=== PATIENT | male | born 1950 | race Caucasian/White ===

== ENCOUNTER 2017-02-16 22:57 | Emergency (ER) | payer BC, OTHER ==
[~2017-02-16] VITALS: Ht 167.6 cm; Wt 73.4 kg
[~2017-02-16 22:57] MED LIST: CPR500 PO; LRT5 PO
[2017-02-16 23:06] VITALS: TEMP 36.9; Ht 167.6 cm; Wt 73.4 kg
[2017-02-16] MEDS ORDERED: HYDROCODONE/ACETAMOPHEN 5/325MG TAB PO STA (23:15)
--- NOTE | 2017-02-16 23:57 | EMERGENCY ROOM VISIT NOTE ---
ED Visit Note First contact with patient: 23:10 CHIEF COMPLAINT: Left wrist pain HISTORY of present illness: This 66-year-old male presents the ER with chief complaint of left wrist pain. The patient states that the pain started about 2 weeks ago and then swelling started approximately one week ago. The patient denies any known injury to the wrist. The patient is right-hand dominant. The patient does admit to having carpal tunnel surgery on his left wrist [address] Green. REVIEW OF SYSTEMS: 6 system review was performed and was negative unless stated otherwise in history of present illness. PMH: The patient is healthy; diabetic, hypertension, back surgery, knee surgery carpal tunnel surgery SOCIAL HISTORY: Patient lives with his . Patient admits to tobacco use but denies any alcohol use. PHYSICAL EXAM: Vital Signs: Were reviewed Reviewed Nurse's notes. GENERAL: 66- year-old white male appears in no acute distress. MENTAL STATUS: Alert and oriented. LEFT WRIST: No gross bony deformity noted. The patient has generalized swelling over the entire wrist joint with generalized tenderness to palpation. Full range of motion but pain elicited with flexion and extension. Positive Phalen's. The patient also has atrophy of the thenar eminence. EMERGENCY DEPARTMENT COURSE: The patient was evaluated. The patient was given [place] 5/325 mg one tablet by mouth for pain. X-ray of the left wrist was ordered and interpreted by myself without any acute findings. This will later be interpreted by the radiologist. The patient was independently evaluated by Dr. Gastelum who agrees with treatment plan. The patient is placed in a wrist lacer splint. The patient was discharged home in stable condition. DIAGNOSIS: Left wrist pain DISCHARGE INSTRUCTIONS & TREATMENT: Wear the wrist splint for 4 - 5 days until evaluated by orthopedics.. Keep the wrist elevated when possible. Take Mobic as prescribed. Ice to the swollen area frequently over the next [address] Green for follow-up appointment. Current/Historical Medications Scheduled Ciprofloxacin (Cipro *), 500 MG PO BID Hydrocodone/Acetaminophen 5MG/500MG (Vicodin 5MG/500MG), 1-2 TABLET PO Q4HR PRN Allergies Coded Allergies: [place] (Verified Allergy, Unknown, 09/16/09) Uncoded Allergies: LOCALANESTHETIC (Allergy, Severe, NOVOCAINE--FACIAL SWELLING, 09/16/09) BROOKE-LOCAL ANESTHETIC (Allergy, Unknown, RESPIRATORY DISTRESS, SWELLING, 06/02/10) Vital Signs Date Time Temp Pulse Resp B/P (MAP) Pulse Ox O2 Delivery O2 Flow Rate FiO2 02/16/17 23:06 36.9 91 18 127/69 94 Room Air Medications Administered Medications (Trade) Dose Ordered Sig/Mehul Route Start Time Stop Time Status Last Admin Dose Admin Acetaminophen/ Hydrocodone Bitart ([place] 5/325 Tab) 1 tab NOW STAT PO 02/16/17 23:15 02/16/17 23:17 DC 02/16/17 23:21 1 TAB Departure Information Patient Instructions [facility]
[2017-02-16] MEDS ORDERED: MELO7.5T5 PO (23:58)
--- NOTE | 2017-02-17 00:20 | DIAGNOSTIC IMAGING REPORT ---
LEFT WRIST 4 VIEWS CLINICAL HISTORY: Left wrist pain and swelling. FINDINGS: 4 views of left wrist are obtained. No prior studies are available for comparison at the time of dictation. The skeletal structures are osteopenic. No fracture is seen. Chronic posttraumatic change is suggested in the fifth metacarpal. There is mild degenerative narrowing at the radiocarpal articulation. Moderate arthritic change is seen at the first carpometacarpal joint. Mild overlying soft tissue edema is noted. A ring is present on the fourth finger. IMPRESSION: 1. Soft tissue swelling with no radiographic evidence of left wrist fracture. 2. Osteopenia and arthritic change as above. Electronically signed by: Vance Moser M.D. 02/17/2017 12:18 AM Dictated Date/Time: 02/17/2017 12:16 AM
[2017-02-17 00:28] VITALS: BP 134/78; PULSE 88; O2SAT 98
[2017-03-21] MEDS ORDERED: CANA1TAB3 PO (11:23)
[2017-03-21] MEDS ORDERED: TRAM-10 PO (11:23)
[2017-03-21] MEDS ORDERED: SIMV20TA2 PO (11:23)
[2017-03-21] MEDS ORDERED: LEVO88TA3 PO (11:23)
[2017-03-21] MEDS ORDERED: REPA1TAB42 PO (11:23)
[2017-03-21] MEDS ORDERED: METF-384 PO (11:23)
[2017-03-21] MEDS ORDERED: GING550C PO (11:23)
[2017-03-21] MEDS ORDERED: LISI10TA PO (11:23)
[2017-03-21] MEDS ORDERED: ASPI81TA28 PO (11:23)
[2017-03-21] MEDS ORDERED: GLYB5TAB8 PO (11:23)
[2017-03-21] MEDS ORDERED: CYAN10005 PO (11:23)
== END 2017-02-17 00:29 | disposition home or self-care (01) ==
LOC: C.EDB 22:58
DX: M25.532 Pain in left wrist (principal); E11.9 Type 2 diabetes mellitus without complications; I10 Essential (primary) hypertension; F17.200 Nicotine dependence, unspecified, uncomplicated

== ENCOUNTER → 2017-03-27 | Day surgery (SDC) | payer OTHER ==
[2017-03-21 11:03] VITALS: Ht 167.6 cm; Wt 71.8 kg
[~2017-03-27] VITALS: Ht 167.6 cm; Wt 71.8 kg
[~2017-03-27] MED LIST changes: +500ML BSS 0.3ML EPI 1:1000PF IRRIG ONE; +ACETAMINOPHEN 325 MG TAB PO PRN; +AMVISC PLUS 0.8ML SYRINGE INT OCU ONE; +ASPI81TA28 PO; +ATROPINE SULFATE 0.1 MG/ML 5ML SYR IV PRN; +BSS FLUSH ONE; +CANA1TAB3 PO; -CPR500 PO; +CYAN10005 PO; +ENDOCOAT 0.85ML SYRINGE INT OCU ONE; +EpINEphrine INJ 1MG/ML AMP 1 MG/ML AMP ONE; +GING550C PO; +GLYB5TAB8 PO; +LACTATED RINGER'S 1000ML 500 ML IV SCH; +LEVO88TA3 PO; +LIDOCAINE 4% OP SOLN DROP CHARGE OPR SCH; +LIDOCAINE HCL 1% MPF 2 ML VIAL ONE; +LISI10TA PO; -LRT5 PO; +METF-384 PO; +MIDAZOLAM HCL 1 MG/ML 2ML VIAL ONE; +MIX: 4ML BSS 1ML EPI 1:1000 PF TOP ONE; +MOXIFLOXACIN OPH SOLN PER DROP CHARGE ONE; +POVIDONE-IODINE OP SOLN 30 ML BTL ONE; +PROPARACAINE 0.5% OP SOLN PER DROP CHARGE OPR SCH; +REPA1TAB42 PO; +SIMV20TA2 PO; +TOBRAMYCIN/DEXAMETHASONE OPH OINT PER APPLN CHARGE ONE; +TRAM-10 PO
--- NOTE | 2017-03-27 06:39 | History & Physical Bridge - SC ---
H&P Re-Evaluation Bridge Note: I have examined the patient, reviewed the History & Physical and in the interval since the performance of the History & Physical I have noted the following changes of clinical significance: No changes noted
[2017-03-27] MEDS: PHENYLEPHRINE HCL 2.5% OP SOLN PER DROP CHARGE OPR SCH ×3 (06:58→07:11)
[2017-03-27] MEDS: CYCLOPENTOLATE HCL 1% OP SOLN PER DROP CHARGE OPR SCH ×3 (07:00→07:12)
[2017-03-27] MEDS: TROPICAMIDE 1% OP SOLN PER DROP CHARGE OPR SCH ×3 (07:00→07:11)
[2017-03-27] MEDS: MOXIFLOXACIN OPH SOLN PER DROP CHARGE OPR SCH ×3 (07:01→07:12)
[2017-03-27] MEDS: LIDOCAINE 4% OP SOLN DROP CHARGE ONE ×2 (07:13→07:44)
--- NOTE | 2017-03-27 07:56 | [facility] Post Operative Brief Note ---
Immediate Operative Summary Operative Date Mar 27, 2017. Pre-Operative Diagnosis Right Eye Cataract Post-Operative Diagnosis same as preop Procedure(s) Performed Right Cataract Phacoemulsification With Intraocular Lens Implant Surgeon Dr. Fish Gamb Cutter Surgeon(s) none Estimated Blood Loss 0ml Findings right cataract Specimens none, per surgeon Complication(s) None Disposition
--- NOTE | 2017-03-27 07:57 | [facility] Operative Report ---
Operative Report Date of Service Mar 27, 2017. Operative Report Phaco with monofocal IOL DATE OF OPERATION: 03/27/17 PREOPERATIVE DIAGNOSIS: Senile nuclear cataract, right eye POSTOPERATIVE DIAGNOSIS: Senile nuclear cataract, right eye PROCEDURE PERFORMED: Phacoemulsification with intraocular lens implantation, right eye SURGEON: Dr. Brijesh Fish ANESTHESIA: Topical with 1% intracameral lidocaine and monitored anesthesia care COMPLICATIONS: None DESCRIPTION OF PROCEDURE: After positively identifying the patient both verbally and by wristband in the preoperative area, the right eye was marked as the operative eye. The patient was then brought back to the operating room by the anesthesia and nursing staff where they were given a drop of Lidocaine and betadine into the operative eye. They were then sterilely prepped and draped in the standard fashion typical for ophthalmic surgery. Steri-strips were placed along the upper eyelids to keep the lashes back, and a lid speculum was placed into the operative eye. At this point, a documented time out was performed with members of the ophthalmology, nursing, and anesthesia staffs all agreeing upon the correct patient, correct location for surgery, correct procedure, and correct type and power of intraocular lens to be implanted. The microscope was then swung into position. First, a paracentesis wound was made using a sideport blade. Then, in sequence, 1% preservative-free lidocaine followed by Endocoat viscoelastic was injected into the anterior chamber. Next , the main incision was made with a keratome blade in triplanar fashion. A sharp cystotome was introduced into the eye and used to create a tear in the anterior capsule, which was directed into a continuous curvilinear capsulorrhexis using Utrata forceps. Hydrodissection was then performed with BSS on a flat-tip cannula. Next, the phacoemulsification handpiece was introduced into the eye and used to remove the nucleus in a ziblyy-hjw-hoakyoi fashion. This was done without complication and then the irrigation-aspiration handpiece was introduced into the eye and used to remove all remaining cortical and epinuclear material. Amvisc was then injected into the anterior chamber as well as into the capsular bag and using the lens injector system, an MX60 18.5 D lens, serial number [id number], and expiration date 07/2019 was injected into the capsular bag and rotated into the correct position. Next, the irrigation- aspiration handpiece was used to remove all remaining Amvisc. BSS was used to hydrate the main wound, and then BSS was injected into the paracentesis site to reach physiologic pressure and then the main wound was checked and found to be watertight. The patient was given drops of Vigamox and Tobradex ointment into the operative eye, and then the surrounding area was cleaned and dried. A clear plastic shield was placed over the eye and the patient was then sat up and taken from the operating room by the anesthesia staff having tolerated the procedure well and suffering no complications. DISPOSITION: The patient was returned to the recovery room in stable condition. I attest to the content of the Intraoperative Record and any orders documented therein. Any exceptions are noted below.
--- NOTE | 2017-03-27 07:58 | Discharge Instructions-SurgCtr ---
Discharge Instructions Date of Service Mar 27, 2017. Visit Reason for Visit: Right Cataract Discharge Discharge Diagnosis / Problem: right cataract Discharge Goals Goal(s): Decrease discomfort, Improve function Medications Stopped Medications Name(s): Metformin last dose Saturday Activity Recommendations Activity Limitations: as noted below Anesthesia . Post Anesthesia Instructions: If you have had General Anesthesia or IV Sedation: * Do not drive today. * Resume driving when surgeon permits. * Do not make important decisions or sign legal documents today. * Call surgeon for: 1. Temperature elevations greater than 101 degrees F. 2. Uncontrollable pain. 3. Excessive bleeding. 4. Persistent nausea and vomiting. 5. Medication intolerance (nausea, vomiting or rash). * For nausea and vomiting use only clear liquids such as: tea, soda, bouillon until nausea subsides, then gradually increase diet as tolerated. * If you have any concerns or questions, call your surgeon's office. If physician is unavailable and it is an emergency, call 911 or go to the nearest emergency room. . Instructions / Follow-Up Instructions / Follow-Up ACTIVITY RECOMMENDATIONS: * Light activities. * You may walk outside, read, watch television. * You may notice redness on the white part of the eye and some blurry vision - this is normal. MEDICATIONS: Resume previous medications unless instructed otherwise by your surgeon. Start all eye drops at 10 am today: * Eye drops (today): Prednisone - one drop in operative eye every 2 hours while awake Ofloxacin - one drop in operative eye every 2 hours while awake Bromfenac - one drop in operative eye daily SPECIAL CARE INSTRUCTIONS: * Tape plastic shield over eye to sleep at night. Call your doctor at with any concerns or problems. FOLLOW UP VISIT: Follow-up with Dr Fish at [place] office as scheduled. Diet Recommendations Home Diet: no limitations Procedures Procedures Performed: Right Cataract Phacoemulsification With Intraocular Lens Implant Pending Studies Studies pending at discharge: no Medical Emergencies . Who to Call and When: Medical Emergencies: If at any time you feel your situation is an emergency, please call 911 immediately. . Non-Emergent Contact Non-Emergency issues call your: Surgeon . . "Provider Documentation" section prepared by Brijesh Fish. .
[2017-03-27 08:03] VITALS: TEMP 36.5
[2017-03-27 08:21] VITALS: BP 136/80; PULSE 58; O2SAT 96
--- NOTE | 2017-03-27 08:53 | Anesthesiology Progress Note ---
Anesthesia Post Op Note Date & Time Mar 27, 2017 at 08:53 Vital Signs Pain Intensity: 0 Vital Signs Past 12 Hours Date Time Temp Pulse Resp B/P (MAP) Pulse Ox O2 Delivery O2 Flow Rate FiO2 03/27/17 08:21 58 136/80 (98) 96 Room Air 03/27/17 08:03 36.5 59 16 123/76 (92) 99 Room Air 03/27/17 07:04 36.7 66 16 135/81 (99) 96 Room Air Notes Mental Status: alert / awake / arousable, participated in evaluation Pt Amnestic to Procedure: Yes Nausea / Vomiting: adequately controlled Pain: adequately controlled Airway Patency, RR, SpO2: stable & adequate BP & HR: stable & adequate Hydration State: stable & adequate Anesthetic Complications: no major complications apparent
== END | disposition home or self-care (01) ==
LOC: X.SURG 06:38
PROVIDERS: ATTEND Ophthalmology
DX: H25.11 Age-related nuclear cataract, right eye (principal); I10 Essential (primary) hypertension; E11.9 Type 2 diabetes mellitus without complications; E78.00 Pure hypercholesterolemia, unspecified; F17.210 Nicotine dependence, cigarettes, uncomplicated; Z90.49 Acquired absence of other specified parts of digestive tract; Z79.82 Long term (current) use of aspirin; Z83.3 Family history of diabetes mellitus

== ENCOUNTER → 2017-04-10 | Day surgery (SDC) | payer OTHER ==
[2017-04-04 11:09] VITALS: Ht 167.6 cm; Wt 71.8 kg
[~2017-04-10] VITALS: Ht 167.6 cm; Wt 71.8 kg
[~2017-04-10] MED LIST changes: +EpHEDrine SULFATE INJ 50 MG/ML AMP IV PRN; +FENTANYL CITRATE INJ 50 MCG/1 ML 2 ML VIAL ONE; +LIDOCAINE 4% OP SOLN DROP CHARGE ONE; +LIDOCAINE 4% OP SOLN DROP CHARGE OPL SCH; -LIDOCAINE 4% OP SOLN DROP CHARGE OPR SCH; +PROPARACAINE 0.5% OP SOLN PER DROP CHARGE OPL SCH; -PROPARACAINE 0.5% OP SOLN PER DROP CHARGE OPR SCH
[2017-04-10] MEDS: PHENYLEPHRINE HCL 2.5% OP SOLN PER DROP CHARGE OPL SCH ×3 (07:02→07:12)
[2017-04-10] MEDS: TROPICAMIDE 1% OP SOLN PER DROP CHARGE OPL SCH ×3 (07:03→07:13)
[2017-04-10] MEDS: CYCLOPENTOLATE HCL 1% OP SOLN PER DROP CHARGE OPL SCH ×3 (07:04→07:14)
[2017-04-10] MEDS: MOXIFLOXACIN OPH SOLN PER DROP CHARGE OPL SCH ×3 (07:05→07:15)
[2017-04-10 08:02] VITALS: TEMP 36.4
--- NOTE | 2017-04-10 08:02 | [facility] Post Operative Brief Note ---
Immediate Operative Summary Operative Date Apr 10, 2017. Pre-Operative Diagnosis Left Eye Cataract Post-Operative Diagnosis Same Procedure(s) Performed Left Eye Cataract Phacoemulsification With Intraocular Lens Implant Surgeon Dr. Fish [facility] [employer] [facility] Manager Surgeon(s) None Estimated Blood Loss None Findings left cataract Specimens None Complication(s) None Disposition
--- NOTE | 2017-04-10 08:03 | [facility] Operative Report ---
Operative Report Date of Service Apr 10, 2017. Operative Report DATE OF OPERATION: 04/10/17 PREOPERATIVE DIAGNOSIS: Senile nuclear cataract, left eye POSTOPERATIVE DIAGNOSIS: Senile nuclear cataract, left eye PROCEDURE PERFORMED: Phacoemulsification with intraocular lens implantation, left eye SURGEON: Dr. Brijesh Fish ANESTHESIA: Topical with 1% intracameral lidocaine and monitored anesthesia care COMPLICATIONS: None DESCRIPTION OF PROCEDURE: After positively identifying the patient both verbally and by wristband in the preoperative area, the left eye was marked as the operative eye. The patient was then brought back to the operating room by the anesthesia and nursing staff where they were given a drop of Lidocaine and betadine into the operative eye. They were then sterilely prepped and draped in the standard fashion typical for ophthalmic surgery. Steri-strips were placed along the upper eyelids to keep the lashes back, and a lid speculum was placed into the operative eye. At this point, a documented time out was performed with members of the ophthalmology, nursing, and anesthesia staffs all agreeing upon the correct patient, correct location for surgery, correct procedure, and correct type and power of intraocular lens to be implanted. The microscope was then swung into position. First, a paracentesis wound was made using a sideport blade. Then, in sequence, 1% preservative-free lidocaine followed by Endocoat viscoelastic was injected into the anterior chamber. Next , the main incision was made with a keratome blade in triplanar fashion. A sharp cystotome was introduced into the eye and used to create a tear in the anterior capsule, which was directed into a continuous curvilinear capsulorrhexis using Utrata forceps. Hydrodissection was then performed with BSS on a flat-tip cannula. Next, the phacoemulsification handpiece was introduced into the eye and used to remove the nucleus in a [id number]-frk-hkulnrn fashion. This was done without complication and then the irrigation-aspiration handpiece was introduced into the eye and used to remove all remaining cortical and epinuclear material. Amvisc was then injected into the anterior chamber as well as into the capsular bag and using the lens injector system, an MX60 20.0 D Lens, serial number [id number], and expiration date 12/2019 was injected into the capsular bag and rotated into the correct position. Next, the irrigation- aspiration handpiece was used to remove all remaining Amvisc. BSS was used to hydrate the main wound, and then BSS was injected into the paracentesis site to reach physiologic pressure and then the main wound was checked and found to be watertight. The patient was given drops of Vigamox and Tobradex ointment into the operative eye, and then the surrounding area was cleaned and dried. A clear plastic shield was placed over the eye and the patient was then sat up and taken from the operating room by the anesthesia staff having tolerated the procedure well and suffering no complications. DISPOSITION: The patient was returned to the recovery room in stable condition. I attest to the content of the Intraoperative Record and any orders documented therein. Any exceptions are noted below.
--- NOTE | 2017-04-10 08:04 | Discharge Instructions-SurgCtr ---
Discharge Instructions Date of Service Apr 10, 2017. Visit Reason for Visit: Cataract Left Eye Discharge Discharge Diagnosis / Problem: left cataract Discharge Goals Goal(s): Decrease discomfort, Improve function Medications Stopped Medications Name(s): metformin and all other meds stopped x 2 days. Activity Recommendations Activity Limitations: as noted below Anesthesia . Post Anesthesia Instructions: If you have had General Anesthesia or IV Sedation: * Do not drive today. * Resume driving when surgeon permits. * Do not make important decisions or sign legal documents today. * Call surgeon for: 1. Temperature elevations greater than 101 degrees F. 2. Uncontrollable pain. 3. Excessive bleeding. 4. Persistent nausea and vomiting. 5. Medication intolerance (nausea, vomiting or rash). * For nausea and vomiting use only clear liquids such as: tea, soda, bouillon until nausea subsides, then gradually increase diet as tolerated. * If you have any concerns or questions, call your surgeon's office. If physician is unavailable and it is an emergency, call 911 or go to the nearest emergency room. . Instructions / Follow-Up Instructions / Follow-Up ACTIVITY RECOMMENDATIONS: * Light activities. * You may walk outside, read, watch television. * You may notice redness on the white part of the eye and some blurry vision - this is normal. MEDICATIONS: Resume previous medications unless instructed otherwise by your surgeon. Start all eye drops at 10 am today: * Eye drops (today): Prednisone - one drop in operative eye every 2 hours while awake Ofloxacin - one drop in operative eye every 2 hours while awake Bromfenac - one drop in operative eye daily SPECIAL CARE INSTRUCTIONS: * Tape plastic shield over eye to sleep at night. Call your doctor at with any concerns or problems. FOLLOW UP VISIT: Follow-up with Dr Fish at [place] office as scheduled. Diet Recommendations Home Diet: no limitations Procedures Procedures Performed: Left Eye Cataract Phacoemulsification With Intraocular Lens Implant Pending Studies Studies pending at discharge: no Medical Emergencies . Who to Call and When: Medical Emergencies: If at any time you feel your situation is an emergency, please call 911 immediately. . Non-Emergent Contact Non-Emergency issues call your: Surgeon . . "Provider Documentation" section prepared by Brijesh Fish. .
[2017-04-10 08:17] VITALS: BP 139/82; PULSE 62; O2SAT 96
--- NOTE | 2017-04-10 08:20 | Anesthesia Progress Nt - [facility] ---
Anesthesia Post Op Note Date & Time Apr 10, 2017 at 08:20 Vital Signs Pain Intensity: 0 Vital Signs Past 12 Hours Date Time Temp Pulse Resp B/P (MAP) Pulse Ox O2 Delivery O2 Flow Rate FiO2 04/10/17 08:17 62 20 139/82 (101) 96 Room Air 04/10/17 08:02 36.4 67 16 154/91 (112) 97 Room Air 04/10/17 06:52 36.4 63 18 125/77 (93) 94 Room Air Notes Mental Status: alert / awake / arousable, participated in evaluation Pt Amnestic to Procedure: Yes Nausea / Vomiting: adequately controlled Pain: adequately controlled Airway Patency, RR, SpO2: stable & adequate BP & HR: stable & adequate Hydration State: stable & adequate Anesthetic Complications: no major complications apparent
== END | disposition home or self-care (01) ==
LOC: X.SURG 06:32
PROVIDERS: ATTEND Ophthalmology
DX: H25.12 Age-related nuclear cataract, left eye (principal); E11.9 Type 2 diabetes mellitus without complications; I10 Essential (primary) hypertension; E78.00 Pure hypercholesterolemia, unspecified; E07.9 Disorder of thyroid, unspecified; Z79.82 Long term (current) use of aspirin; Z79.899 Other long term (current) drug therapy

== ENCOUNTER → 2017-09-13 | Outpatient (CLI) | payer OTHER ==
[~2017-09-13] MED LIST changes: -500ML BSS 0.3ML EPI 1:1000PF IRRIG ONE; -ACETAMINOPHEN 325 MG TAB PO PRN; -AMVISC PLUS 0.8ML SYRINGE INT OCU ONE; -ATROPINE SULFATE 0.1 MG/ML 5ML SYR IV PRN; -BSS FLUSH ONE; -ENDOCOAT 0.85ML SYRINGE INT OCU ONE; -EpHEDrine SULFATE INJ 50 MG/ML AMP IV PRN; -EpINEphrine INJ 1MG/ML AMP 1 MG/ML AMP ONE; -FENTANYL CITRATE INJ 50 MCG/1 ML 2 ML VIAL ONE; -LACTATED RINGER'S 1000ML 500 ML IV SCH; -LIDOCAINE 4% OP SOLN DROP CHARGE ONE; -LIDOCAINE 4% OP SOLN DROP CHARGE OPL SCH; -LIDOCAINE HCL 1% MPF 2 ML VIAL ONE; -MIDAZOLAM HCL 1 MG/ML 2ML VIAL ONE; -MIX: 4ML BSS 1ML EPI 1:1000 PF TOP ONE; -MOXIFLOXACIN OPH SOLN PER DROP CHARGE ONE; -POVIDONE-IODINE OP SOLN 30 ML BTL ONE; -PROPARACAINE 0.5% OP SOLN PER DROP CHARGE OPL SCH; +REPA1TAB40 PO; -REPA1TAB42 PO; -TOBRAMYCIN/DEXAMETHASONE OPH OINT PER APPLN CHARGE ONE
[2017-09-13 13:47] LABS: HEMOGLOBIN A1C 6.8 % (4.5-5.6)
[2017-09-13 13:59] LABS: ALBUMIN 4.2 gm/dl (3.4-5.0); ALT/SGPT 19 U/L (12-78); AST/SGOT 12 U/L (15-37); BLOOD UREA NITROGEN 8 mg/dl (7-18); CARBON DIOXIDE 26 mmol/L (21-32); CHOLESTEROL 115 mg/dl (0-200); CREATININE 0.82 mg/dl (0.60-1.40); GLUCOSE 124 mg/dl (70-99); SODIUM 134 mmol/L (136-145)
[2017-09-13 14:00] LABS: ALKALINE PHOSPHATASE 49 U/L (45-117); LDL CHOLESTEROL CALCULATED 55 mg/dl; TOTAL PROTEIN 7.7 gm/dl (6.4-8.2)
== END | disposition home or self-care (01) ==
LOC: C.LAB 12:34
PROVIDERS: ATTEND Internal Medicine
DX: E78.5 Hyperlipidemia, unspecified (principal); I10 Essential (primary) hypertension; E11.9 Type 2 diabetes mellitus without complications

== ENCOUNTER 2017-11-20 00:55 | Emergency (ER) | payer OTHER ==
[~2017-11-20] VITALS: Ht 167.6 cm; Wt 70.9 kg
[2017-11-20 00:59] VITALS: TEMP 36.8; Ht 167.6 cm; Wt 70.9 kg
[2017-11-20] MEDS ORDERED: MoRPHine SULFATE 10 MG/ML CARP/VIAL IM STA (01:07)
--- NOTE | 2017-11-20 01:09 | EMERGENCY ROOM VISIT NOTE ---
History Report prepared by Quinn: Dirk Meza Under the Supervision of: Dr. Joey Gastelum M.D. First contact with patient: 01:01 Chief Complaint: BACK PAIN Stated Complaint: SEVERE BACK PAIN History of Present Illness The patient is a 67 year old male who presents to the Emergency Room with complaints of constant lower back pain beginning tonight. The patient states that he first developed back pain a week ago, which has worsened and become constant tonight. He notes that he did not do any recent heaving lifting or experience any trauma. He reports that he woke up tonight with this worsened pain. The patient states that his pain worsens when he gets up and coughs. He notes that his pain radiates to his right buttock. He denies any fever, loss of bladder/bowel control, and pain that radiates down to his leg. He reports that he has a history of a previous back surgery. The patient states that he took old gabapentin and tramadol with no relief of his symptoms. Source of History: patient Onset: tonight Position: back (lower) Timing: constant Modifying Factors (Worsening): other (getting up, coughing) Associated Symptoms: No fevers Note: The patient also complains of right buttock pain. He denies any loss of bladder/ bowel control and pain that goes down to his leg. Review of Systems See HPI for pertinent positives & negatives. A total of 10 systems reviewed and were otherwise negative. Past Medical & Surgical Medical Problems: (1) Carpal tunnel syndrome Surgical Problems: (1) History of back surgery (2) History of knee surgery Family History FH: diabetes mellitus FH: lung disease FHx: cancer FHx: gallbladder disease FHx: heart disease Hypertension Kidney disease Kidney stones Social History Smoking Status: Current Every Day Smoker Marital Status: Housing Status: lives with family Occupation Status: retired Current/Historical Medications Scheduled Aspirin (Aspirin Ec), 81 MG PO QAM Atorvastatin (Lipitor), 40 MG PO DAILY Canagliflozin (Invokana), 300 MG PO QAM Cyanocobalamin (Vitamin B-12), 1,000 MCG PO DAILY Dorcas (Zingiber Officinalis) (Dorcas Root), 1,100 MG PO BID Glyburide (Micronase), 10 MG PO BIDM Levothyroxine Sodium (Levothyroxine Sodium), 88 MCG PO QAM Lisinopril (Prinivil), 10 MG PO QAM Metformin Hcl (Glucophage), 1,000 MG PO BIDM Methylprednisolone (Medrol Dosepak), 1 PKT PO UD Repaglinide (Prandin), 3-4 TAB PO AC Scheduled PRN Oxycodone Immediate Rel Tab (Roxicodone Ir), 1-2 TAB PO Q4H PRN for Severe Pain Tramadol (Ultram), 50 MG PO Q6H PRN for Pain Allergies Coded Allergies: Lidocaine (Verified Allergy, Severe, NOVOCAINE,BROOKE-FACIAL SWELLING, RESP DISTRESS, 11/20/17) Procaine (Verified Allergy, Unknown, FACIAL SWELLING, 11/20/17) Sitagliptin (Verified Allergy, Unknown, liver problems, 11/20/17) [place] (Verified Allergy, Unknown, 11/20/17) Physical Exam Vital Signs Date Time Temp Pulse Resp B/P (MAP) Pulse Ox O2 Delivery O2 Flow Rate FiO2 11/20/17 02:21 70 16 140/76 99 11/20/17 00:59 36.8 70 16 139/ 96 Room Air Physical Exam GENERAL: Patient is uncomfortable appearing and in moderate distress, hunched over secondary to pain. EYES: No scleral icterus, unremarkable pupils. ENT: Mucous membranes moist, no nasal congestion. NECK: No masses appreciated, no meningismus, trachea is midline. RESPIRATORY: No dyspnea. Clear to auscultation and equal bilaterally. No wheeze , no rhonchi. CARDIOVASCULAR: Regular rate and rhythm. No murmurs, rubs, gallops appreciated. GASTROINTESTINAL: Abdomen soft, nontender, no peritonitis. Bowel sounds positive. No masses appreciated. BACK: No midline tenderness, no CVA tenderness, vague tenderness over right iliac crest, no swelling, no erythema of low back. EXTREMITIES: Normal motion all extremities, no cyanosis, no edema. NEUROLOGIC: Alert and oriented, no acute motor or sensory deficits, no focal weakness, cranial nerves grossly intact. SKIN: No rash, no jaundice, no diaphoresis. Medical Decision & Procedures ER Provider Diagnostic Interpretation: Radiology results and stated below per my review and interpretation: 4 View Lumbar Spine X-RAY: Mild straightening of lumbar spine. Diffuse arthritic changes. Mild L4-L5 scoliosis vs. lateral compression fracture. Medications Administered Medications (Trade) Dose Ordered Sig/Mehul Route Start Time Stop Time Status Last Admin Dose Admin Morphine Sulfate (MoRPHine SULFATE INJ) 6 mg NOW STAT IM 11/20/17 01:07 11/20/17 01:09 DC 11/20/17 01:13 6 MG Oxycodone HCl (Roxicodone Immediate Rel 5MG Home Pack) 1 homepack UD ONCE PO 11/20/17 02:15 11/20/17 02:16 DC 11/20/17 02:16 1 HOMEPACK Oxycodone HCl (Roxicodone Immediate Rel Tab) 10 mg NOW STAT PO 11/20/17 02:10 11/20/17 02:12 DC 11/20/17 02:16 10 MG Prednisone (PredniSONE TAB) 60 mg NOW STAT PO 11/20/17 02:10 11/20/17 02:12 DC 11/20/17 02:15 60 MG ED Course 0103: The patient was evaluated in room A9. A complete history and physical exam was performed. 0209: I reevaluated and updated the patient. He feels a little better and would like to go home. I stressed the need for follow up with his PCP. We discussed the risks/benefits of narcotics. He is agreeable to starting a short term oxycodone, and is aware that it is very addictive. He notes that he has been on prednisone and steroids before, and is aware that he needs to monitor his sugars closely when he is on these medications. 0218: Reevaluated the patient. Discussed results and discharge instructions: He verbalized understanding and agreement. The patient is ready for discharge. Medical Decision Differential: Musculoskeletal, Disc Herniation, Fracture, Cord Compression, Discitis, Infectious, Aortic Pathology, Renal Colic, UTI/Pyelonephritis, Acute Exacerbation of Chronic Pain, Sciatica, Cauda Equina, amongst other pathologies entertained. 67 yr old male arrives for evaluation of low back pain radiating to right buttock. Spinal surg in 1982 but since with minimal issues. Today's pain started 1 week ago and worsening with stretching/twisting. Imaging without clear compression fracture through there could be slight lateral compression fracture. NO neuro deficits and aptient looks well. He wishes to get home as quickly as possible. We discussed risks/benefits of narcotics, including addiction issues, which is wishes to proceed with them. Seems reasonable as has failed tramadol/gabapentin for this. As such will also start steroids and on monitoring BSGs at home. Stable, looks well and understand instructions regarding return/follow up. [place] Drug Monitoring Program Search Results: no issues identified Medication Reconcilliation Current Medication List: was personally reviewed by me Blood Pressure Screening Patient's blood pressure: Elevated blood pressure Blood pressure disposition: Elevated BP felt to be situational Impression Primary Impression: Acute lumbar back pain Scribe Attestation The scribe's documentation has been prepared under my direction and personally reviewed by me in its entirety. I confirm that the note above accurately reflects all work, treatment, procedures, and medical decision making performed by me. Departure Information Dispostion Home / Self-Care Prescriptions Oxycodone Immediate Rel Tab (ROXICODONE IR) 5 Mg Tab 1-2 TAB PO Q4H Y for Severe Pain, #20 TAB Prov: Joey Gastelum M.D. 11/20/17 Methylprednisolone (MEDROL DOSEPAK) 4 Mg Romario 1 PKT PO UD for 6 Days, #1 PKT Prov: Joey Gastelum M.D. 11/20/17 Referrals Charli Reagan MD (PCP) Forms HOME CARE DOCUMENTATION FORM, IMPORTANT VISIT INFORMATION Patient Instructions ED Sprain Strain Lumbar, My [facility] Additional Instructions You have received a narcotic pain medication prescription. These medications may cause drowsiness and should not be used with other sedative medications. Do not drive, drink alcohol, perform dangerous activities, nor make important decisions after taking these medications. skilled nursing use or inappropriate use may lead to addiction.
[2017-11-20] MEDS ORDERED: ATOR-24 PO (01:28)
[2017-11-20] MEDS ORDERED: OXYCODONE HCL IR 5 MG TAB (IMMEDIATE RELEASE) PO STA (02:10)
[2017-11-20] MEDS ORDERED: OXYC1TAB3 PO (02:12)
[2017-11-20] MEDS ORDERED: METH4PAK PO (02:12)
[2017-11-20] MEDS ORDERED: OXYCODONE IR HOME PACK PO ONE (02:15)
[2017-11-20 02:21] VITALS: BP 140/76; PULSE 70; O2SAT 99
--- NOTE | 2017-11-20 07:43 | DIAGNOSTIC IMAGING REPORT ---
LUMBAR SPINE 5 VIEWS HISTORY: low back pain radiating right buttock COMPARISON: None. FINDINGS: There is no fracture. No subluxation. There appear to be 6 lumbar-type vertebral bodies with L6 consistent with a transitional vertebra. Prior cholecystectomy. Moderate well-formed stool seen within the colon. Minimal levoscoliosis which could be positional. Mild facet degenerative changes within the lower lumbar spine. Moderate to severe disc space narrowing at L5 L6. Mild disc space narrowing at L6 S1. There are large endplate osteophytes at the L5 L6 level. IMPRESSION: No fracture or subluxation within the lumbar spine. Degenerative changes within the lower lumbar spine as described above. Electronically signed by: Ron Rivera M.D. 11/20/2017 7:41 AM Dictated Date/Time: 11/20/2017 7:38 AM
== END 2017-11-20 02:21 | disposition home or self-care (01) ==
LOC: C.EDB 00:56 → C.EDA 02:21
DX: M54.5 Low back pain (principal); F17.210 Nicotine dependence, cigarettes, uncomplicated; Z79.82 Long term (current) use of aspirin; Z79.899 Other long term (current) drug therapy; Z88.8 Allergy status to other drugs, medicaments and biological substances; Z91.018 Allergy to other foods

== ENCOUNTER 2022-08-22 15:37 | Inpatient (IN) ==
[2022-08-22 17:07] LABS: Basophils # (auto) 0.05 K/uL (0-0.2); Basophils % (auto) 0.7 %; Eosinophils # (auto) 0.08 K/uL (0-0.50); Eosinophils % (auto) 1.1 %; Immature Granulocytes # (auto) 0.02 K/uL (0.00-0.02); Immature Granulocytes % (auto) 0.3 %; Lymphocytes # (auto) 1.31 K/uL (1.2-3.4); Lymphocytes % (auto) 18.5 %; Mean Corpuscular Hemoglobin 32.2 pg (25.0-34.0); Mean Corpuscular Hgb Conc 35.3 g/dL (32.0-36.0); Mean Corpuscular Volume 91.2 fL (80.0-100.0); Mean Platelet Volume 11.9 fL (9.4-12.4); Monocytes # (auto) 0.65 K/uL (0.24-0.82); Monocytes % (auto) 9.2 %; Neutrophils # (auto) 4.98 K/uL (1.4-6.5); Neutrophils % (auto) 70.2 %; Platelet Count 240 K/uL (130-400); RDW Coefficient of Variation 17.2 % (11.5-14.5); RDW Standard Deviation 56.6 fL (36.4-46.3); Red Blood Count 3.73 M/uL (4.63-6.08); White Blood Count 7.09 K/ul (4.8-10.8)
[2022-08-22 17:23] LABS: INR 1.1 (0.9-1.1); Partial Thromboplastin Time 27.1 Seconds (21.0-31.0); Prothrombin Time 11.9 Seconds (9.0-12.0)
[2022-08-22 17:27] LABS: Albumin Globulin Ratio 0.9 (0.9-2); Albumin Level 3.6 gm/dl (3.4-5.0); BUN Creatinine Ratio 14.3 (10-20); Bilirubin,Total 13.5 mg/dl (0.2-1.0); Calcium 9.1 mg/dl (8.5-10.1); Creatinine Clr Calc Pharmacy 91.9 ml/min; Est GFR (African American) 114.1 ml/min; Est GFR (Non-African American) 98.5 ml/min; Globulin 3.9 gm/dl (2.5-4.0); Potassium 3.8 mmol/L (3.5-5.1); Total Protein 7.5 gm/dl (6.0-8.3)
[2022-08-22] MEDS ORDERED: SODIUM CHLORIDE 0.9% 1000ML 1,000 ML IV ONE (17:55)
--- NOTE | 2022-08-22 18:00 | Emergency Department Note ---
Impression & Plan Pancreatic mass, Transaminitis, Elevated bilirubin ED Provider Note NAME: GLORIA ALVARENGA Jr AGE: 72 SEX: M : 1950 ARRIVES VIA: Walk-In INFORMANT: Patient ED PROVIDER(S): Modesto Schulz DO CHIEF COMPLAINT: Jaundice referred in HPI: Patient is a 72-year-old male who presents to the ER with past medical history of hypertension, hyperlipidemia and diabetes for jaundice. This has been going on for the past 2 weeks. Denies any belly pain. No nausea, vomiting, or diarrhea. No dysuria, urgency, or frequency. He had blood work done by his PCP which showed elevated liver functions as well as bilirubin. Had an ultrasound which showed a dilated pancreatic duct. Patient has been having diarrhea for the past 2 weeks. No other complaints. PAST MEDICAL HISTORY:See Below PAST SURGICAL HISTORY:See Below FAMILY HISTORY:See Below SOCIAL HISTORY:See Below HOME MEDICATIONS:See Below ALLERGIES:See Below VITALS:See Below PHYSICAL EXAMINATION: GENERAL: Sitting up in bed, alert, well appearing, well nourished, no distress, non-toxic EYE EXAM: Scleral icterus OROPHARYNX: no exudate, no erythema, lips, buccal mucosa, and tongue normal and mucous membranes are moist NECK: supple, no nuchal rigidity, no adenopathy, non-tender LUNGS: Clear to auscultation. Normal chest wall mechanics HEART: no murmurs, S1 normal and S2 normal ABDOMEN: abdomen soft, non-tender, normo-active bowel sounds, no masses, no rebound or guarding. UPPER EXTREMITIES: upper extremities are grossly normal. SKIN: Diffuse jaundice LOWER EXTREMITIES: No pitting edema. NEURO EXAM: Normal sensorium, cranial nerves II-XII grossly intact, normal speech, no gross weakness of arms, no gross weakness of legs. MEDICAL DECISION MAKING: Patient is a 72-year-old male who presents ER referred in by PCP. IV was established blood work was obtained. External records were reviewed as well as call sheet and it did which show a transaminitis, elevated bilirubin and dilated pancreatic duct on US which was reviewed. IV was established blood work was obtained. Labs show no significant leukocytosis or anemia. INR unremarkable. BMP with mild hyponatremia 134. Transaminitis of 200. Bilirubin elevated at 13. UA was clean. COVID-negative. Patient was updated bedside. CT abdomen pelvis confirms a pancreatic mass. Both patient and family were updated at bedside. Discussed with the hospitalist Dr. David Zhao for further evaluation. Triage Nursing notes reviewed. Limited review of prior medical records performed Vital Signs: reviewed and remarkable for no significant abnormalities Differential diagnosis: Differential diagnoses includes but is not limited to gastritis, peptic ulcer disease, GERD, gallbladder disease, pancreatitis, small bowel obstruction, irritable bowel disease, irritable bowel syndrome, appendicitis, diverticulitis, malignancy, hernia, urinary tract infection, torsion, perforation, trauma, infectious. ER treatment provided: See below Diagnostics interpreted by me include EKG and cardiac monitoring as listed below: -Cardiac Monitoring: An order was placed for continuous cardiac monitoring. The monitor shows a rate of 80 with sinus rhythm. -Laboratory studies:Interpreted by me as stated above in MDM and shown below. Imaging studies: Xrays: As interpreted by me:none CTs show: CT abdomen pelvis as described above Consultation(s): Discussed with Dr. Zhao as described above for further evaluation admission for pancreatic mass. Procedures:none Critical Care: None Past Med/Surg History Medical History (Updated 08/22/22 @ 22:48 by Modesto Schulz DO) Diabetes HLD (hyperlipidemia) HTN (hypertension) Hypothyroid Surgical History (Updated 04/13/18 @ 20:14 by Radha Stanley) Hx of colonoscopy Family History (Updated 04/13/18 @ 20:15 by Radha Stanley) Other Prostate cancer Social History Smoking Status: Current every day smoker Tobacco Type: Cigarettes Preferred Language: Cambodian Feels Safe at Home: Yes Allergies Allergies Allergy/AdvReac Type Severity Reaction Status Date / Time lidocaine Allergy Severe NOVOCAINE,BROOKE-FACIAL Verified 08/22/22 20:19 SWELLING,RESP DISTRESS procaine Allergy Unknown FACIAL Verified 08/22/22 20:19 SWELLING sitagliptin Allergy Unknown liver Verified 08/22/22 20:19 problems strawberry Allergy Unknown Unknown Verified 08/22/22 20:19 ranitidine Allergy Hives Verified 08/22/22 20:20 Home Meds Home Medications Medication Instructions Recorded Confirmed canagliflozin 300 mg tablet 300 mg PO QAM ##0 03/21/17 08/22/22 (Invokana) cyanocobalamin (vitamin B-12) 1,000 mcg PO DAILY #0 tabs 03/21/17 08/22/22 1,000 mcg tablet lisinopril 10 mg tablet 10 mg PO DAILY #0 tabs 03/21/17 08/22/22 metformin 1,000 mg tablet 1,000 mg PO BIDM #0 tabs 03/21/17 08/22/22 tramadol 50 mg tablet 50 mg PO Q6H PRN Pain #0 tabs 03/21/17 08/22/22 atorvastatin 40 mg tablet 40 mg PO DAILY 01/21/21 08/22/22 acetaminophen 650 mg 1,300 mg PO DAILY 08/22/22 08/22/22 tablet,extended release aspirin 81 mg chewable tablet 81 mg PO DAILY 08/22/22 08/22/22 insulin glargine 100 unit/mL (3 30 unit subcut HS 08/22/22 08/22/22 mL) subcutaneous pen (Lantus Solostar U-100 Insulin) levothyroxine 100 mcg tablet 100 mcg PO DAILYBB 08/22/22 08/22/22 omeprazole 20 mg capsule,delayed 20 mg PO DAILYBB 08/22/22 08/22/22 release potassium citrate 99 mg capsule 99 mg PO DAILY 08/22/22 08/22/22 prednisone 5 mg tablet 5 mg PO DAILY 08/22/22 08/22/22 Results & Data (ED) Vital Signs Vital Signs - 24 hr 08/22/22 15:54 08/22/22 18:18 08/22/22 20:00 Temperature 36.6 C Temperature Source Temporal Artery Scan Pulse Rate 85 Pulse Rate [Finger] 74 65 Respiratory Rate 18 14 18 Blood Pressure 136/77 Blood Pressure [Right Arm] 122/77 149/72 H Blood Pressure Mean 96 Blood Pressure Mean [Right Arm] 92 97 Blood Pressure Position Sitting Pulse Oximetry 98 98 97 Oxygen Delivery Method Room Air Room Air Sepsis Recent Fever Within 48 Hours No Sepsis New/Unexplained Change in Mental Status N/A Sepsis Action Taken by Nursing No Action Required 08/22/22 22:17 Temperature Temperature Source Pulse Rate 74 Pulse Rate [Finger] Respiratory Rate 18 Blood Pressure 139/74 Blood Pressure [Right Arm] Blood Pressure Mean Blood Pressure Mean [Right Arm] Blood Pressure Position Pulse Oximetry 98 Oxygen Delivery Method Room Air Sepsis Recent Fever Within 48 Hours Sepsis New/Unexplained Change in Mental Status Sepsis Action Taken by Nursing Laboratory Data 08/22/22 16:50 08/22/22 16:50 Lab Results 08/22/22 08/22/22 08/22/22 Range/Units 16:50 16:50 16:50 WBC 7.09 (4.8-10.8) K/ul RBC 3.73 L (4.63-6.08) M/uL Hgb 12.0 L (14.0-18.0) g/dl Hct 34.0 L (40.1-51.0) % MCV 91.2 (80.0-100.0) fL MCH 32.2 (25.0-34.0) pg MCHC 35.3 (32.0-36.0) g/dL RDW Std Deviation 56.6 H (36.4-46.3) fL RDW Coeff of Malick 17.2 H (11.5-14.5) % Plt Count 240 (130-400) K/uL MPV 11.9 (9.4-12.4) fL Immature Gran % (Auto) 0.3 % Neut % (Auto) 70.2 % Lymph % (Auto) 18.5 % [place] % (Auto) 9.2 % Eos % (Auto) 1.1 % Baso % (Auto) 0.7 % Neut # (Auto) 4.98 (1.4-6.5) K/uL Lymph # (Auto) 1.31 (1.2-3.4) K/uL [place] # (Auto) 0.65 (0.24-0.82) K/uL Eos # (Auto) 0.08 (0-0.50) K/uL Baso # (Auto) 0.05 (0-0.2) K/uL Immature Gran # (Auto) 0.02 (0.00-0.02) K/uL PT 11.9 (9.0-12.0) Seconds INR 1.1 (0.9-1.1) APTT 27.1 (21.0-31.0) Seconds PTT Ratio 1.0 Sodium 134 L (136-145) mmol/L Potassium 3.8 (3.5-5.1) mmol/L Chloride 102 (98-107) mmol/L Carbon Dioxide 23 (21-32) mmol/L Anion Gap 9 (3-11) BUN 9 (6-23) mg/dl Creatinine 0.63 (0.6-1.4) mg/dl Est Cr Clr Drug Dosing 91.9 ml/min Est GFR ( Amer) 114.1 ml/min Est GFR (Non-Af Amer) 98.5 ml/min BUN/Creatinine Ratio 14.3 (10-20) Glucose 86 (70-99(Fasting)) mg/dl Calcium 9.1 (8.5-10.1) mg/dl Total Bilirubin 13.5 H (0.2-1.0) mg/dl AST 202 H (13-39) U/L ALT 144 H (7-52) U/L Alkaline Phosphatase 496 H (34-104) U/L Total Protein 7.5 (6.0-8.3) gm/dl Albumin 3.6 (3.4-5.0) gm/dl Globulin 3.9 (2.5-4.0) gm/dl Albumin/Globulin Ratio 0.9 (0.9-2) Urine Color Urine Appearance (Clear) Urine pH (4.5-7.5) Ur Specific [place] (1.000-1.030) Urine Protein (Negative) Urine Glucose (UA) (Negative) Urine Ketones (Negative) Urine Blood (Negative) Urine Nitrite (Negative) Urine Bilirubin (Negative) Urine Urobilinogen (Negative) Ur Leukocyte Esterase (Negative) SARS-CoV-2, RNA, NAAT (NEGATIVE) 08/22/22 08/22/22 Range/Units 18:00 18:20 WBC (4.8-10.8) K/ul RBC (4.63-6.08) M/uL Hgb (14.0-18.0) g/dl Hct (40.1-51.0) % MCV (80.0-100.0) fL MCH (25.0-34.0) pg MCHC (32.0-36.0) g/dL RDW Std Deviation (36.4-46.3) fL RDW Coeff of Malick (11.5-14.5) % Plt Count (130-400) K/uL MPV (9.4-12.4) fL Immature Gran % (Auto) % Neut % (Auto) % Lymph % (Auto) % [place] % (Auto) % Eos % (Auto) % Baso % (Auto) % Neut # (Auto) (1.4-6.5) K/uL Lymph # (Auto) (1.2-3.4) K/uL [place] # (Auto) (0.24-0.82) K/uL Eos # (Auto) (0-0.50) K/uL Baso # (Auto) (0-0.2) K/uL Immature Gran # (Auto) (0.00-0.02) K/uL PT (9.0-12.0) Seconds INR (0.9-1.1) APTT (21.0-31.0) Seconds PTT Ratio Sodium (136-145) mmol/L Potassium (3.5-5.1) mmol/L Chloride (98-107) mmol/L Carbon Dioxide (21-32) mmol/L Anion Gap (3-11) BUN (6-23) mg/dl Creatinine (0.6-1.4) mg/dl Est Cr Clr Drug Dosing ml/min Est GFR ( Amer) ml/min Est GFR (Non-Af Amer) ml/min BUN/Creatinine Ratio (10-20) Glucose (70-99(Fasting)) mg/dl Calcium (8.5-10.1) mg/dl Total Bilirubin (0.2-1.0) mg/dl AST (13-39) U/L ALT (7-52) U/L Alkaline Phosphatase (34-104) U/L Total Protein (6.0-8.3) gm/dl Albumin (3.4-5.0) gm/dl Globulin (2.5-4.0) gm/dl Albumin/Globulin Ratio (0.9-2) Urine Color Dark Yellow Urine Appearance Clear (Clear) Urine pH 5.5 (4.5-7.5) Ur Specific [place] > 1.045 H (1.000-1.030) Urine Protein Negative (Negative) Urine Glucose (UA) 3+ H (Negative) Urine Ketones Negative (Negative) Urine Blood Negative (Negative) Urine Nitrite Negative (Negative) Urine Bilirubin 3+ H (Negative) Urine Urobilinogen Negative (Negative) Ur Leukocyte Esterase Negative (Negative) SARS-CoV-2, RNA, NAAT NEGATIVE (NEGATIVE) Administered Medications Lactated Ringer's (Lr) 1,000 mls @ 50 mls/hr IV .Q20H STA Stop: 08/23/22 17:47 Last Admin: 08/22/22 22:15 Dose: 50 mls/hr Documented By: BRIELLE Discontinued Medications Sodium Chloride (Nss 1000ml) 1,000 mls @ 999 mls/hr IV .Q1H1M ONE Stop: 08/22/22 18:55 Last Infusion: 08/22/22 20:32 Dose: 0 mls/hr Documented By: Admin: 08/22/22 18:18 Dose: 999 mls/hr Documented By: GEOVANNA Ioversol (Optiray 350 100ml) 86 ml IV ONCE ONE Stop: 08/22/22 18:10 Last Admin: 08/22/22 18:10 Dose: 86 ml Documented By: VANNESSA Imaging Data Radiologist's Impression: Abdomen/Pelvis CT 08/22/22 17:47 CT OF THE ABDOMEN AND PELVIS WITH CONTRAST CLINICAL HISTORY: Abdominal pain. Elevated liver function tests. COMPARISON STUDY: None. TECHNIQUE: Following IV administration of 86 mL of Optiray, axial images of the abdomen and pelvis were obtained from the lung bases to the proximal femurs. Images were reviewed in the axial, sagittal, and coronal planes. IV contrast was administered without complication. Automated exposure control was utilized for the study. A dose lowering technique was utilized adhering to the principles of ALARA. CT DOSE: 290.53 mGy.cm FINDINGS: Numerous irregular nodules, the majority of which are cavitary, are noted within the lower lungs. These measure up to 1.5 cm. No pneumatosis, free air or portal venous gas is present. There are multiple ill-defined hypodense hepatic lesions that measure up to 1.7 cm. Moderate to marked biliary ductal dilatation is noted status post cholecystectomy. Common bile duct measures 1.8 cm in caliber. Abrupt caliber change of the distal common bile duct within the pancreatic head is noted. There is no pancreatic ductal dilatation. However, there is an ill-defined mass within the pancreatic head and uncinate process which measures approximately 2.9 x 1.8 cm. This extends along the medial wall of the duodenum. No lymphadenopathy is present. Spleen, adrenal glands and kidneys are unremarkable. Is no hydronephrosis. There is extensive plaque of the abdominal aorta. Wall thickening of the sigmoid colon and rectum is noted. There is no evidence for a bowel obstruction. There is no ascites. No suspicious oss eous lesions are present. IMPRESSION: 1. Ill-defined pancreatic head and uncinate process mass which measures approxim ately 2.9 x 1.8 cm. This is highly suggestive of pancreatic adenocarcinoma which results in moderate to marked biliary ductal dilatation with numerous liver and pulmonary metastases, as described above. 2. Rectosigmoid wall thickening. This may be due to underdistention or represent a nonspecific proctocolitis. 3. No bowel obstruction. ACT 112: Positive. There are findings on this exam that require communication between the performing entity and the patient following Patient Test Result Information Act ([place] Act 112) guidelines. Electronically signed by: Del Crawford M.D. 08/22/2022 6:28 PM Discharge Plan Visit Data Chief Complaint: Constipation Stated Complaint: REF BY DOC,BOWEL UBSTRUCTION,LIVER INFLAMED ED Provider: Modesto Schulz Discharge Problem: Pancreatic mass, Transaminitis, Elevated bilirubin Patient Disposition: Admitted As Inpatient Discharge Instructions Interventions: ED Discharge Assessment Last Done: 08/22/22 22:17 Forms Stand Alone Forms: My [employer] Prescriptions Prescriptions: No Action cyanocobalamin (vitamin B-12) 1,000 mcg Tablet 1,000 mcg PO DAILY Qty: 0 tramadol 50 mg Tablet 50 mg PO Q6H PRN (Reason: Pain) Qty: 0 metformin 1,000 mg Tablet 1,000 mg PO BIDM Qty: 0 lisinopril 10 mg Tablet 10 mg PO DAILY Qty: 0 Invokana 300 mg Tablet 300 mg PO QAM Qty: 0 omeprazole 20 mg capsule,delayed release(DR/EC) 20 mg PO DAILYBB insulin glargine [Lantus Solostar U-100 Insulin] 100 unit/mL (3 mL) insulin pen 30 unit SUBCUT HS levothyroxine 100 mcg tablet 100 mcg PO DAILYBB prednisone 5 mg tablet 5 mg PO DAILY acetaminophen [Tylenol Extended Release] 650 mg Tablet Extended Release 1,300 mg PO DAILY aspirin [Aspirin Child] 81 mg Tablet,Chewable 81 mg PO DAILY Rx Instructions: take with food potassium citrate 99 mg Capsule 99 mg PO DAILY atorvastatin 40 mg tablet 40 mg PO DAILY Referrals Referrals: Charli Reagan MD [Primary Care Provider] -
[2022-08-22] MEDS ORDERED: OPTIRAY 350 100ml IV ONE (18:09)
--- NOTE | 2022-08-22 18:29 | CT Scan Report ---
CT OF THE ABDOMEN AND PELVIS WITH CONTRAST CLINICAL HISTORY: Abdominal pain. Elevated liver function tests. COMPARISON STUDY: None. TECHNIQUE: Following IV administration of 86 mL of Optiray, axial images of the abdomen and pelvis we re obtained from the lung bases to the proximal femurs. Images were reviewed in the axial, sagittal, and coronal planes. IV contrast was administered without complication. Automated exposure control wa s utilized for the study. A dose lowering technique was utilized adhering to the principles of ALARA . CT DOSE: 290.53 mGy.cm FINDINGS: Numerous irregular nodules, the majority of which are cavitary, are noted within the lower lungs. These measure up to 1.5 cm. No pneumatosis, free air or portal venous gas is present. There ar e multiple ill-defined hypodense hepatic lesions that measure up to 1.7 cm. Moderate to marked biliar y ductal dilatation is noted status post cholecystectomy. Common bile duct measures 1.8 cm in caliber . Abrupt caliber change of the distal common bile duct within the pancreatic head is noted. There is no pancreatic ductal dilatation. However, there is an ill-defined mass within the pancreatic head and uncinate process which measures approximately 2.9 x 1.8 cm. This extends along the medial wall of th e duodenum. No lymphadenopathy is present. Spleen, adrenal glands and kidneys are unremarkable. Is no hydronephrosis. There is extensive plaque of the abdominal aorta. Wall thickening of the sigmoid col on and rectum is noted. There is no evidence for a bowel obstruction. There is no ascites. No suspici ous osseous lesions are present. IMPRESSION: 1. Ill-defined pancreatic head and uncinate process mass which measures approximately 2.9 x 1.8 cm. T his is highly suggestive of pancreatic adenocarcinoma which results in moderate to marked biliary skylar marcus dilatation with numerous liver and pulmonary metastases, as described above. 2. Rectosigmoid wall thickening. This may be due to underdistention or represent a nonspecific procto colitis. 3. No bowel obstruction. ACT 112: Positive. There are findings on this exam that require communication between the performing entity and the patient following Patient Test Result Information Act ([place] Act 112) guidelines. Electronically signed by: Del Crawford M.D. 08/22/2022 6:28 PM
[2022-08-22 18:35] LABS: Appearance Urine Clear (Clear); Blood Urine Negative (Negative); Color Urine Dark Yellow; Glucose Urine UA 3+ (Negative); Ketones Urine Negative (Negative); Leukocyte Esterase Urine Negative (Negative); Nitrite Urine Negative (Negative); Protein Urine Negative (Negative); Specific Gravity Urine > 1.045 (1.000-1.030); Urobilinogen Urine Negative (Negative); pH Urine 5.5 (4.5-7.5)
[2022-08-22 18:42] LABS: Bilirubin Urine 3+ (Negative)
--- NOTE | 2022-08-22 21:02 | History & Physical Report ---
Date of Service August 22, 2022 Assessment & Plan (1) Painless jaundice: Plan: Secondary to possible pancreatic malignancy with mets on imaging hypertension, stable hyperlipidemia, on statin Rx hx PVD PMR on chronic steroid Rx DM2 insulin requiring, reasonable control as of recent hemoglobin A1c of 7.3 last August 2022 hypothyroidism, euthyroid as of recent outpatient TSH Acute on chronic anemia, hemoglobin drop from baseline ongoing tobacco abuse [facility] GI consult Re: Painless jaundice, pancreatic tumor N.p.o. after midnight until patient seen by service anticipation of diagnostic procedure Oncology consult eventually Basal bolus insulin adjusted for n.p.o. status, ISS BG goal 1 10-1 40 Anemia work-up, transfuse PRBC if hemoglobin less than 8 and or for symptomatic anemia Nicotine patch as needed DVT prophylaxis per Lovenox subcu Full code Patient requesting updates from providers. Ms. Lisa Boone, contact #[phone]. Text document was generated using Index voice recognition software. It may contain grammatical or spelling errors. Kindly contact undersigned for clarification of any documentation item in question. History of Present Illness Chief Complaint: Jaundice Primary Care Provider: Charli Reagan MD History obtained from patient, family, and records. Medical history significant for hypertension, hyperlipidemia, PVD, PMR on chronic steroid Rx, GERD, DM2 insulin requiring, hypothyroidism, chronic anemia (baseline hemoglobin of 13), ongoing tobacco abuse. 1 month history of generalized pruritus. Two weeks ago, patient noted weight loss and poor appetite. No abdominal pain, no fever, no chills. No bleeding. Outpatient blood work ordered by PCP during outpatient visit last month drawn 4 days ago. Abnormal labs noted. Hemoglobin noted to be 12, ALT 190, AST 309, alk phos 586, total bilirubin 9 Outpatient liver ultrasound requested by PCP few days ago. 1. The pancreatic duct is prominent measuring up to 3.7 mm. Further nonemergent evaluation is recommended to exclude pancreatic neoplasm. 2. 1.4 x 1.2 cm slightly hypoechoic lesion in the anterior aspect of the left lobe of the liver. Additional 1.6 x 2 cm lesion in the right lobe of the liver. Additional lesions are present but not measured. Further nonemergent evaluation with CT with liver protocol or MRI is recommended to exclude neoplastic process. Patient skin color noted to be yellow by this week. Patient directed to ER by PCP following conversation with . 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 Allergies Allergy/AdvReac Type Severity Reaction Status Date / Time lidocaine Allergy Severe NOVOCAINE,BROOKE-FACIAL Verified 08/22/22 20:19 SWELLING,RESP DISTRESS procaine Allergy Unknown FACIAL Verified 08/22/22 20:19 SWELLING sitagliptin Allergy Unknown liver Verified 08/22/22 20:19 problems strawberry Allergy Unknown Unknown Verified 08/22/22 20:19 ranitidine Allergy Hives Verified 08/22/22 20:20 Home Medications Medication Instructions Recorded Confirmed Type canagliflozin 300 mg tablet 300 mg PO QAM ##0 03/21/17 08/22/22 History (Invokana) cyanocobalamin (vitamin B-12) 1,000 mcg PO DAILY #0 tabs 03/21/17 08/22/22 History 1,000 mcg tablet lisinopril 10 mg tablet 10 mg PO DAILY #0 tabs 03/21/17 08/22/22 History metformin 1,000 mg tablet 1,000 mg PO BIDM #0 tabs 03/21/17 08/22/22 History tramadol 50 mg tablet 50 mg PO Q6H PRN Pain #0 tabs 03/21/17 08/22/22 History atorvastatin 40 mg tablet 40 mg PO DAILY 01/21/21 08/22/22 History acetaminophen 650 mg 1,300 mg PO DAILY 08/22/22 08/22/22 History tablet,extended release aspirin 81 mg chewable tablet 81 mg PO DAILY 08/22/22 08/22/22 History insulin glargine 100 unit/mL (3 30 unit subcut HS 08/22/22 08/22/22 History mL) subcutaneous pen (Lantus Solostar U-100 Insulin) levothyroxine 100 mcg tablet 100 mcg PO DAILYBB 08/22/22 08/22/22 History omeprazole 20 mg capsule,delayed 20 mg PO DAILYBB 08/22/22 08/22/22 History release potassium citrate 99 mg capsule 99 mg PO DAILY 08/22/22 08/22/22 History prednisone 5 mg tablet 5 mg PO DAILY 08/22/22 08/22/22 History Past Med/Surg History Medical History (Updated 08/23/22 @ 05:39 by Baljinder Solano MD) Diabetes HLD (hyperlipidemia) HTN (hypertension) Hypothyroid Surgical History (Updated 04/13/18 @ 20:14 by Radha Stanley) Hx of colonoscopy Family History (Updated 04/13/18 @ 20:15 by Radha Stanley) Other Prostate cancer Social History Smoking Status: Current every day smoker Tobacco Type: Cigarettes Do You Dip or Chew Tobacco: No; Tobacco Cessation Education Requested by Patient: No Hx Alcohol Use: No Hx Substance Use: No Preferred Language: Comoran Communication Ability: Effective Softwood Faller Required: No Beliefs That Will Affect Care: None Current Living Situation: Spouse Other Information That Helps Us Care for You: No Feels Safe at Home: Yes Safety Concerns: Feels Safe At This Time Assistive Devices: None Review of Systems Review of Systems: As per HPI, all other systems reviewed and negative Physical Exam Physical Exam: GENERAL: Comfortable, pleasant, no respiratory distress SKIN: Jaundice, warm HEENT: Pale palpebral conjunctivae, no ptosis, icteric sclerae, dry buccal mucosa NECK : Supple, no tenderness CHEST : Decreased breath sounds, no tenderness HEART : RRR, no obvious murmurs ABDOMEN: Some distention, nontender EXTREMITIES : No LE swelling/tenderness, no other conspicuous deformities noted NEUROLOGIC : Coherent, no facial asymmetry, no other gross focality Results & Data Results & Data ([facility]) Vital Signs (Past 12 Hours) Vital Signs Temp Pulse Pulse Resp BP BP Pulse Ox 08/22/22 20:00 65 18 149/72 H 97 08/22/22 18:18 74 14 122/77 98 08/22/22 15:54 36.6 C 85 18 136/77 98 O2 Del Method 08/22/22 20:00 08/22/22 18:18 Room Air 08/22/22 15:54 Room Air Laboratory Results 08/22/22 08/22/22 08/22/22 16:50 16:50 16:50 WBC 7.09 RBC 3.73 L Hgb 12.0 L Hct 34.0 L MCV 91.2 MCH 32.2 MCHC 35.3 RDW Std Deviation 56.6 H RDW Coeff of Malick 17.2 H Plt Count 240 MPV 11.9 Immature Gran % (Auto) 0.3 Neut % (Auto) 70.2 Lymph % (Auto) 18.5 Barber % (Auto) 9.2 Eos % (Auto) 1.1 Baso % (Auto) 0.7 Neut # (Auto) 4.98 Lymph # (Auto) 1.31 Barber # (Auto) 0.65 Eos # (Auto) 0.08 Baso # (Auto) 0.05 Immature Gran # (Auto) 0.02 PT 11.9 INR 1.1 APTT 27.1 PTT Ratio 1.0 Sodium 134 L Potassium 3.8 Chloride 102 Carbon Dioxide 23 Anion Gap 9 BUN 9 Creatinine 0.63 Est Cr Clr Drug Dosing 91.9 Est GFR ( Amer) 114.1 Est GFR (Non-Af Amer) 98.5 BUN/Creatinine Ratio 14.3 Glucose 86 Calcium 9.1 Total Bilirubin 13.5 H AST 202 H ALT 144 H Alkaline Phosphatase 496 H Total Protein 7.5 Albumin 3.6 Globulin 3.9 Albumin/Globulin Ratio 0.9 Urine Color Urine Appearance Urine pH Ur Specific [place] Urine Protein Urine Glucose (UA) Urine Ketones Urine Blood Urine Nitrite Urine Bilirubin Urine Urobilinogen Ur Leukocyte Esterase SARS-CoV-2, RNA, NAAT 08/22/22 08/22/22 18:00 18:20 WBC RBC Hgb Hct MCV MCH MCHC RDW Std Deviation RDW Coeff of Malick Plt Count MPV Immature Gran % (Auto) Neut % (Auto) Lymph % (Auto) Barber % (Auto) Eos % (Auto) Baso % (Auto) Neut # (Auto) Lymph # (Auto) Barber # (Auto) Eos # (Auto) Baso # (Auto) Immature Gran # (Auto) PT INR APTT PTT Ratio Sodium Potassium Chloride Carbon Dioxide Anion Gap BUN Creatinine Est Cr Clr Drug Dosing Est GFR ( Amer) Est GFR (Non-Af Amer) BUN/Creatinine Ratio Glucose Calcium Total Bilirubin AST ALT Alkaline Phosphatase Total Protein Albumin Globulin Albumin/Globulin Ratio Urine Color Dark Yellow Urine Appearance Clear Urine pH 5.5 Ur Specific [place] > 1.045 H Urine Protein Negative Urine Glucose (UA) 3+ H Urine Ketones Negative Urine Blood Negative Urine Nitrite Negative Urine Bilirubin 3+ H Urine Urobilinogen Negative Ur Leukocyte Esterase Negative SARS-CoV-2, RNA, NAAT NEGATIVE Diagnostic Findings CT abdomen pelvis: 1. Ill-defined pancreatic head and uncinate process mass which measures approximately 2.9 x 1.8 cm. This is highly suggestive of pancreatic adenocarcinoma which results in moderate to marked biliary ductal dilatation with numerous liver and pulmonary metastases, as described above. 2. Rectosigmoid wall thickening. This may be due to underdistention or represent a nonspecific proctocolitis. 3. No bowel obstruction. EKG as per my interpretation : Rate 70, NSR, normal axis, no ischemia
[2022-08-22] MEDS ORDERED: ACETAMINOPHEN 325 MG TAB PO PRN (21:43)
[2022-08-22] MEDS ORDERED: LACTATED RINGER'S 1,000 ML IV STA (21:48)
[2022-08-22] MEDS ORDERED: GLUCAGON FOR INJ 1 MG VIAL SQ PRN (23:09)
[2022-08-22] MEDS ORDERED: GLUCOSE 10 TAB/TUBE PO PRN (23:09)
[2022-08-22] MEDS ORDERED: CARBOHYDRATES FOR HYPOGLYCEMIA PO PRN (23:09)
[2022-08-22] MEDS ORDERED: traMADol HCL 50 MG TABLET PO PRN (23:09)
[2022-08-22] MEDS ORDERED: GLUCOSE 40% GEL 15 GM TUBE PO PRN (23:09)
[2022-08-22] MEDS ORDERED: DEXTROSE 50% 50 ML SYRINGE IV PRN (23:09)
[2022-08-22] MEDS ORDERED: PROMETHAZINE HCL 6.25 MG in SODIUM CHLORIDE 0.9% 50 ML IV PRN (23:09)
[2022-08-22] MEDS: LANTUS PER UNIT CHARGE SQ SCH (23:41)
[2022-08-22] MEDS: INSULIN ASPART PER UNIT SC SCH (23:42)
[2022-08-23] MEDS: PANTOprazole 40 MG TAB PO SCH (05:55)
[2022-08-23] MEDS: LEVOTHYROXINE SODIUM 100 MCG TABLET PO SCH (05:55)
[2022-08-23] MEDS: INSULIN ASPART PER UNIT SC SCH ×4 (06:08→20:58)
[2022-08-23 07:38] LABS: Basophils # (auto) 0.06 K/uL (0-0.2); Eosinophils # (auto) 0.17 K/uL (0-0.50); Eosinophils % (auto) 2.8 %; Hematocrit (blood only) 30.2 % (40.1-51.0); Hemoglobin 10.6 g/dl (14.0-18.0); Immature Granulocytes # (auto) 0.01 K/uL (0.00-0.02); Immature Granulocytes % (auto) 0.2 %; Lymphocytes # (auto) 1.01 K/uL (1.2-3.4); Lymphocytes % (auto) 16.9 %; Mean Corpuscular Hgb Conc 35.1 g/dL (32.0-36.0); Mean Corpuscular Volume 91.2 fL (80.0-100.0); Mean Platelet Volume 11.7 fL (9.4-12.4); Monocytes # (auto) 0.66 K/uL (0.24-0.82); Neutrophils # (auto) 4.07 K/uL (1.4-6.5); Neutrophils % (auto) 68.1 %; Platelet Count 215 K/uL (130-400); RDW Coefficient of Variation 17.2 % (11.5-14.5); RDW Standard Deviation 56.6 fL (36.4-46.3); Red Blood Count 3.31 M/uL (4.63-6.08); Reticulocyte % 2.5 % (0.5-2.0); Reticulocytes # 0.08 10^6/uL (0.02-0.10); White Blood Count 5.98 K/ul (4.8-10.8)
[2022-08-23 08:18] LABS: Ferritin 235.2 ng/ml (8-388)
[2022-08-23 08:24] LABS: Vitamin B12 > 1500 pg/ml (180-914)
--- NOTE | 2022-08-23 08:59 | Electrocardiogram Report ---
Test Reason : Blood Pressure : / mmHG Vent. Rate : 071 BPM Atrial Rate : 071 BPM P-R Int : 154 ms QRS Dur : 090 ms QT Int : 394 ms P-R-T Axes : 031 033 056 degrees QTc Int : 428 ms Poor data quality, interpretation may be adversely affected Normal sinus rhythm Normal ECG When compared with ECG of 21-JAN-2021 19:26, No significant change was found Confirmed by Gal Dumas ([id number]) on 08/23/2022 8:59:20 AM Referred By: Charli Reagan Confirmed By:Gal Dumas
[2022-08-23] MEDS ORDERED: predniSONE 5 MG TAB PO SCH (09:00)
[2022-08-23] MEDS ORDERED: ASPIRIN 81 MG ECTAB PO SCH (09:00)
[2022-08-23] MEDS ORDERED: ENOXAPARIN INJ 30 MG/0.3 ML SYR SQ SCH (09:00)
[2022-08-23] MEDS: lisinopril 10 MG TAB PO SCH (09:09)
[2022-08-23 09:28] LABS: Albumin Level 3.2 gm/dl (3.4-5.0); BUN Creatinine Ratio 12.5 (10-20); Bilirubin,Total 13.5 mg/dl (0.2-1.0); Calcium 8.6 mg/dl (8.5-10.1); Creatinine Clr Calc Pharmacy 89.5 ml/min; Est GFR (African American) 113.4 ml/min; Est GFR (Non-African American) 97.8 ml/min; Globulin 3.3 gm/dl (2.5-4.0); Potassium 3.5 mmol/L (3.5-5.1); Total Protein 6.5 gm/dl (6.0-8.3)
[2022-08-23] MEDS ORDERED: HYDROCORTISONE ACETATE 25 MG SUPP PR PRN (10:13)
[2022-08-23] MEDS ORDERED: Nursing to Pharmacy Communication SCH (10:45)
--- NOTE | 2022-08-23 12:28 | Gastrointestinal Consultation ---
Date of Consultation August 23, 2022 Assessment & Plan (1) Painless jaundice: (2) Pancreatic mass: (3) Diarrhea: Patient is a 72 years old male who presented with painless jaundice, appetite and weight loss, elevated LFTs. CT abdomen pelvis with signs of obstructing pancreatic head mass measuring 2.9 x 1.8 cm with suspicious metastatic processes within the liver and lung areas. CT also showed signs of possible proctocolitis with patient's having symptoms of diarrhea. - CL diet today - NPO after midnight - EUS/ERCP with Dr. Hussein in [place] on 08/24/2021 - CEA elevated, f/u CA 19-9 - Check stool cx and Cdiff - Hydrocortisone 25mg RI BID prn hemorrhoidal pain/bleeding - Consider colonoscopy to eval for proctitis if stool studies negative and pt still having diarrhea and rectal pain symptoms Supervising Physician Co-Signing Physician Notes I have personally seen and examined the patient with CALEB Berumen. Her note reflects my exam and findings. I agree with her impression and plan. EUS tomorrow. Discussed with patient that CT is highly suggestive of pancreatic cancer. Narendra Moeller M.D. History of Present Illness Reason for Consultation: Abnormal LFTs, pancreas mass Requesting Physician: Dr. Poly Moore Attending Physician: Dr. Narendra Moeller History of Present Illness Patient is a 72 years old male with past medical histories of diabetes, hyperlipidemia, hypertension, hypothyroidism who was referred to ED by PCP after noticed him to be jaundiced in the past week. Pt denies any other associated symptoms including fevers, chills, rash, chest pain, shortness of breath, abdominal pain, nausea or vomiting. He does note that his appetite is somewhat poor and lost about 10 pounds in the last 2 weeks. He is having loose stools, having lots of burning and irritation on his hemorrhoids due to the frequency of bowel movements. Denies any rectal bleeding. Upon evaluation, he was noted to have no leukocytosis, he is anemic with H&H of 10/30, Chemistry and kidney functions relatively unremarkable, LFTs however were increased: Total bilirubin 13, AST 197, ALT 129, alkaline phosphatase 441 (compared to LFTs last week - Tbili 9, AST 300, ALT 180, alk phos 500) . CEA 51.8, CA 19-[address] abd/pelvis w contrast showed ill-defined pancreatic head and uncinate process mass which measures approximately 2.9 x 1.8 cm, highly suggestive of pancreatic adenocarcinoma w moderate to marked biliary ductal dilatation along with numerous liver and pulmonary metastases. There is also rectosigmoid wall thickening which may be due to underdistention or represent a nonspecific proctocolitis. Pt is a tobacco smoker. Denies ETOH, illicit drugs Last EGD 2014: esophagitis, gastritis Last colonoscopy 2018: poor prep, adenomatous colon polyp Allergies Allergy/AdvReac Type Severity Reaction Status Date / Time lidocaine Allergy Severe NOVOCAINE,BROOKE-FACIAL Verified 08/22/22 20:19 SWELLING,RESP DISTRESS procaine Allergy Unknown FACIAL Verified 08/22/22 20:19 SWELLING sitagliptin Allergy Unknown liver Verified 08/22/22 20:19 problems strawberry Allergy Unknown Unknown Verified 08/22/22 20:19 ranitidine Allergy Hives Verified 08/22/22 20:20 Home Medications Medication Instructions Recorded Confirmed Type canagliflozin 300 mg tablet 300 mg PO QAM ##0 03/21/17 08/22/22 History (Invokana) cyanocobalamin (vitamin B-12) 1,000 mcg PO DAILY #0 tabs 03/21/17 08/22/22 History 1,000 mcg tablet lisinopril 10 mg tablet 10 mg PO DAILY #0 tabs 03/21/17 08/22/22 History metformin 1,000 mg tablet 1,000 mg PO BIDM #0 tabs 03/21/17 08/22/22 History tramadol 50 mg tablet 50 mg PO Q6H PRN Pain #0 tabs 03/21/17 08/22/22 History atorvastatin 40 mg tablet 40 mg PO DAILY 01/21/21 08/22/22 History acetaminophen 650 mg 1,300 mg PO DAILY 08/22/22 08/22/22 History tablet,extended release aspirin 81 mg chewable tablet 81 mg PO DAILY 08/22/22 08/22/22 History insulin glargine 100 unit/mL (3 30 unit subcut HS 08/22/22 08/22/22 History mL) subcutaneous pen (Lantus Solostar U-100 Insulin) levothyroxine 100 mcg tablet 100 mcg PO DAILYBB 08/22/22 08/22/22 History omeprazole 20 mg capsule,delayed 20 mg PO DAILYBB 08/22/22 08/22/22 History release potassium citrate 99 mg capsule 99 mg PO DAILY 08/22/22 08/22/22 History prednisone 5 mg tablet 5 mg PO DAILY 08/22/22 08/22/22 History Patient History Medical History Diabetes HLD (hyperlipidemia) HTN (hypertension) Hypothyroid Surgical History Hx of colonoscopy Family History Other Prostate cancer Social History Smoking Status: Current every day smoker Tobacco Type: Cigarettes Do You Dip or Chew Tobacco: No; Tobacco Cessation Education Requested by Patient: No Hx Alcohol Use: No Hx Substance Use: No Preferred Language: Wallisian Communication Ability: Effective Pediatrician Active Practice Required: No Beliefs That Will Affect Care: None Current Living Situation: Spouse Other Information That Helps Us Care for You: No Feels Safe at Home: Yes Safety Concerns: Feels Safe At This Time Assistive Devices: None Review of Systems Review of Systems: All systems reviewed & are unremarkable except as noted in HPI & below Physical Exam Constitutional: Thin, cooperative Eyes: icteric sclera ENMT: external ear and nose normal, oropharynx normal Respiratory: normal respiratory effort, lungs clear to auscultation Cardiovascular: RRR, no murmur, no edema Gastrointestinal (Abdomen): normal bowel sounds, soft, nontender, no hepatosplenomegaly Skin: + jaundice Neurologic: Motor/Sensory: no asterixis Psychiatric: A+Ox3, euthymic affect Lymphatic: no lymphedema Results & Data ([facility]) Vital Signs (Past 12 Hours) Vital Signs Temp Pulse Resp BP Pulse Ox O2 Del Method 08/23/22 07:40 36.8 C 61 16 137/73 96 Room Air
[2022-08-23 14:01] LABS: Adenovirus F 40/41 PCR Not Detected (NotDetected); Astrovirus PCR Not Detected (NotDetected); Campylobacter PCR Not Detected (NotDetected); Cryptosporidium PCR Not Detected (NotDetected); Cyclospora cayetanensis PCR Not Detected (NotDetected); Entamoeba histolytica PCR Not Detected (NotDetected); Enteroaggregative E.coli(EAEC) Not Detected (NotDetected); Enteropathogenic E.coli (EPEC) Not Detected (NotDetected); Enterotoxigenic E.coli (ETEC) Not Detected (NotDetected); Giardia lamblia PCR Not Detected (NotDetected); Norovirus GI/GII PCR Not Detected (NotDetected); Plesiomonas shigelloides PCR Not Detected (NotDetected); Rotavirus A PCR Not Detected (NotDetected); Salmonella PCR Not Detected (NotDetected); Sapovirus PCR Not Detected (NotDetected); Shiga-like Toxin E.coli (STEC) Not Detected (NotDetected); Shigella/Enteroinvasive E.coli Not Detected (NotDetected); Vibrio cholerae PCR Not Detected (NotDetected); Vibrio species PCR Not Detected (NotDetected); Yersinia enterocolitica PCR Not Detected (NotDetected)
[2022-08-23] MEDS: LANTUS PER UNIT CHARGE SQ SCH (21:04)
--- NOTE | 2022-08-23 21:22 | Hospitalist Progress Note ---
Date of Service August 23, 2022 Assessment & Plan (1) Painless jaundice: Plan: CT abd/pelvis showed pancreatic head and uncinate process mass which measures approximately 2.9 x 1.8 cm. This is highly suggestive of pancreatic adenocarcinoma which results in moderate to marked biliary ductal dilatation with numerous liver and pulmonary metastases. Elevated LFT with AST 202 and ALT 144 AST 197, ALT 129 and alkaline phosphate 441 today Elevated CEA and CA19-9 pending Gastro on board Case discussed with GI that plan for EUS/ERCP tomorrow Currently on clear liquid diet Will make NPO after midnight . Rectal pain CT abd/pelvis showed rectosigmoid wall thickening. This may be due to underdistention or represent a nonspecific proctocolitis. Starting on Hydrocortisone [place] 25mg BID Diarrhea Stool cx are negative Consider colonoscopy to eval for proctitis Lung nodule Low-dose CT chest on 05/2022 show bilateral cavitary lesion CT imaging discussed with Dr. Zhao pulmonology recommend to repeat the CAT scan since it has been more than 3 months Due to recent contrast, will get the CT chest done in next few days Diabetes Recent hemoglobin A1c of 7.3 on August 2022 Continue Lantus and insulin sliding scale Continue monitor BS Code status full code Disposition We will discharge once medically stable (2) Pancreatic mass: (3) Transaminitis: Admission and Anticipated Discharge Date Admission Date: August 22, 2022 Subjective Patient was seen and evaluated for follow-up of abnormal liver enzymes Lying in bed with no acute distress with at bedside Pt said that his PCP sent him to ER because of abnormal liver enzymes He denies any abdominal pain, nausea and vomiting Review of Systems Review of Systems: All systems reviewed & are unremarkable except as noted in Subjective Physical Exam Physical Exam: General- No acute distress Head- atraumatic Eyes- PERRL, EOMI, ENT- oropharynx clear Neck- supple, no JVD Lungs- clear to auscultation Heart- regular rhythm; no murmur Abdomen- normal bowel sounds, soft, nontender Extremities- no calf tenderness Neuro- alert, oriented x 3; PERRL, EOMI; no facial palsy; no dysarthria Skin- warm & dry, +jaundice Results & Data Results & Data ([facility]) Vital Signs (Past 12 Hours) Vital Signs Temp Pulse Resp BP Pulse Ox O2 Del Method 08/23/22 16:33 36.5 C 64 18 134/82 99 Room Air
[2022-08-24] MEDS ORDERED: Nursing to Pharmacy Communication SCH (01:00)
[2022-08-24] MEDS ORDERED: CIPROFLOXACIN / D5W 400 MG/200 ML BAG IV SCH (06:00)
[2022-08-24] MEDS ORDERED: INSULIN ASPART PER UNIT SC SCH (06:00)
[2022-08-24] MEDS: PANTOprazole 40 MG TAB PO SCH (06:11)
[2022-08-24] MEDS: LEVOTHYROXINE SODIUM 100 MCG TABLET PO SCH (06:11)
[2022-08-24] MEDS ORDERED: SUGAMMADEX SODIUM 200 MG/2 ML VIAL IV ONE (06:55)
[2022-08-24] MEDS ORDERED: ONDANSETRON INJ 2 MG/ML 2 ML VIAL ONE (07:02)
[2022-08-24] MEDS ORDERED: PROPOFOL IV EMULSION 10 MG/ML 20 ML VIAL IV ONE (07:02)
[2022-08-24] MEDS ORDERED: ROCURONIUM BROMIDE 10 MG/ML 5 ML VIAL IV ONE (07:02)
[2022-08-24] MEDS ORDERED: fentaNYL citrate 100 MCG/2 ML VIAL ONE (07:02)
[2022-08-24] MEDS ORDERED: DEXAMETHASONE SOD INJ 4 MG/ML VIAL ONE (07:02)
--- NOTE | 2022-08-24 07:03 | Anesthesiology Consultation ---
Date of Service August 24, 2022 Assessment & Plan Chart Review Chart Review: Acceptable Risk for Surgery and Patient NOT seen in Pre Admission Testing Consults Requested none ASA ASA4 Proposed Anesthesia Anesthesia Type: General Risk / Benefits Reviewed With: PT / POA / Parent / Guardian, Accepts Plan and Informed Consent Obtained History Surgery Operation Date: 08/24/22 07:15 Proposed Procedures p Endoscopic Retrograde Cholangiopancreatogram - Mukesh Hussein DO s Endoscopic Ultrasonography Upper - Mukesh Hussein DO Height/Weight Height: 5 ft 6 in Weight: 60.64 kg Allergies Allergy/AdvReac Type Severity Reaction Status Date / Time lidocaine Allergy Severe NOVOCAINE,BROOKE-FACIAL Verified 08/22/22 20:19 SWELLING,RESP DISTRESS procaine Allergy Unknown FACIAL Verified 08/22/22 20:19 SWELLING sitagliptin Allergy Unknown liver Verified 08/22/22 20:19 problems strawberry Allergy Unknown Unknown Verified 08/22/22 20:19 ranitidine Allergy Hives Verified 08/22/22 20:20 Medications Home Medications Medication Instructions Recorded Confirmed Last Taken canagliflozin 300 mg tablet 300 mg PO QAM ##0 03/21/17 08/22/22 01/21/21 (Invokana) cyanocobalamin (vitamin B-12) 1,000 mcg PO DAILY #0 tabs 03/21/17 08/22/22 01/21/21 1,000 mcg tablet lisinopril 10 mg tablet 10 mg PO DAILY #0 tabs 03/21/17 08/22/22 01/21/21 metformin 1,000 mg tablet 1,000 mg PO BIDM #0 tabs 03/21/17 08/22/22 01/21/21 tramadol 50 mg tablet 50 mg PO Q6H PRN Pain #0 tabs 03/21/17 08/22/22 01/21/21 atorvastatin 40 mg tablet 40 mg PO DAILY 01/21/21 08/22/22 01/21/21 acetaminophen 650 mg 1,300 mg PO DAILY 08/22/22 08/22/22 Unknown tablet,extended release aspirin 81 mg chewable tablet 81 mg PO DAILY 08/22/22 08/22/22 Unknown insulin glargine 100 unit/mL (3 30 unit subcut HS 08/22/22 08/22/22 Unknown mL) subcutaneous pen (Lantus Solostar U-100 Insulin) levothyroxine 100 mcg tablet 100 mcg PO DAILYBB 08/22/22 08/22/22 Unknown omeprazole 20 mg capsule,delayed 20 mg PO DAILYBB 08/22/22 08/22/22 Unknown release potassium citrate 99 mg capsule 99 mg PO DAILY 08/22/22 08/22/22 Unknown prednisone 5 mg tablet 5 mg PO DAILY 08/22/22 08/22/22 Unknown Active Medications Generic Name Dose Route Start Last Admin Trade Name Zoey PRN Reason Stop Dose Admin Aspirin 81 mg 08/23/22 09:00 08/23/22 09:09 Aspirin 81 Mg Ectab PO 09/22/22 08:59 Not Given DAILY CHARAN Dextrose 25 - 50 ml 08/22/22 23:09 08/24/22 05:52 Dextrose 50% 50 Ml Syringe IV 09/21/22 23:08 25 ml UD PRN Administration Hypoglycemia Protocol Protocol Enoxaparin Sodium 30 mg 08/23/22 09:00 08/23/22 09:38 Enoxaparin Inj 30 Mg/0.3 Ml Syr SQ 09/22/22 08:59 30 mg QAM CHARAN Administration Hydrocortisone 25 mg 08/23/22 10:13 08/23/22 12:24 Hydrocortisone Acetate 25 Mg Supp VA 09/22/22 20:59 25 mg BID PRN Administration hemorrhoids Insulin Aspart 0 units 08/24/22 06:00 08/24/22 05:59 Insulin Aspart Per Unit SC 09/23/22 05:59 Not Given Q6 [facility] Levothyroxine Sodium 100 mcg 08/23/22 06:30 08/24/22 06:11 Levothyroxine Sodium 100 Mcg Tablet PO 09/22/22 06:29 Not Given DAILYBB [facility] Lisinopril 10 mg 08/23/22 09:00 08/23/22 09:09 Lisinopril 10 Mg Tab PO 09/22/22 08:59 Not Given DAILY [facility]AN Pantoprazole Sodium 40 mg 08/23/22 06:30 08/24/22 06:11 Pantoprazole 40 Mg Tab PO 09/22/22 06:29 Not Given DAILYBB [facility] Prednisone 5 mg 08/23/22 09:00 08/23/22 09:09 Prednisone 5 Mg Tab PO 09/22/22 08:59 Not Given DAILY [facility] NPO Date Last Intake of Fluids: 08/23/22 Time Last Intake of Fluids: 23:30 Date Last Intake of Solids: 08/22/22 Time Last Intake of Solids: 22:00 Past Medical History Medical History Diabetes HLD (hyperlipidemia) HTN (hypertension) Hypothyroid Exercise / Class Metabolic Activity III < 4 Walking/Shop/Light housework Past Family History Family History Other Prostate cancer Past Surgical History Surgical History Hx of colonoscopy Past Anesthesia History No Hx of Anesthesia Complications and No Family Hx of Anesthesia Complications History of PONV No Hx of PONV and No Hx of Motion Sickness Social History Smoking Status: Current every day smoker tobacco type: cigarettes Do You Dip or Chew Tobacco: No Hx Alcohol Use: No Hx Substance Use: No Physical Exam Vital Signs Last Vital Signs Temp 36.8 C 08/24/22 06:03 Pulse 56 L 08/24/22 06:03 Resp 16 08/24/22 06:03 BP 133/75 08/24/22 06:03 Pulse Ox 96 08/24/22 06:03 O2 Del Method 08/24/22 06:03 Constitutional + cachectic; no acute distress ENMT Mouth: + dentition abnormality and + edentulous Thyromental Distance: > or= 3.5 Finger Breadths Mallampati Class: II Neck normal visual inspection, trachea midline and + facial hair; neck extension not limited Respiratory normal respiratory effort Auscultation: + diminished lung sounds Cardiovascular Rate/Rhythm: regular rate and regular rhythm Heart Sounds: no murmur Vessels: no carotid bruit Musculoskeletal Spine: normal cervical ROM Extremities: full ROM of extremities Skin jaundiced Neurologic moves all extremities Motor/Sensory: no sensory deficit Psychiatric Orientation: alert and oriented x 3 Testing Laboratory Results 08/23/22 07:02 08/23/22 07:02 PT 11.9 Seconds (9.0-12.0) 08/22/22 16:50 INR 1.1 (0.9-1.1) 08/22/22 16:50 APTT 27.1 Seconds (21.0-31.0) 08/22/22 16:50 Urine Color Dark Yellow 08/22/22 18:20 Urine Appearance Clear (Clear) 08/22/22 18:20 Urine pH 5.5 (4.5-7.5) 08/22/22 18:20 Ur Specific [place] > 1.045 (1.000-1.030) H 08/22/22 18:20 Urine Protein Negative (Negative) 08/22/22 18:20 Urine Glucose (UA) 3+ (Negative) H 08/22/22 18:20 Urine Ketones Negative (Negative) 08/22/22 18:20 Urine Nitrite Negative (Negative) 08/22/22 18:20 Ur Leukocyte Esterase Negative (Negative) 08/22/22 18:20 08/24/22 08/24/22 08/24/22 06:07 05:46 05:44 POC Glucose 124 H 67 L* 65 L* 08/23/22 20:47 POC Glucose 86 Electrocardiogram Date: 08/22/22 Findings: + NSR @ (@ 71)
--- NOTE | 2022-08-24 07:10 | History & Physical Bridge Note ---
Date of Service August 24, 2022 History & Physical Bridge Note I have examined the patient, reviewed the History & Physical and in the interval since the performance of the History & Physical I have noted the following changes of clinical significance: no changes noted. The patient had presented with evidence of biliary obstruction and a pancreatic mass on imaging. We are planning to do endoscopic ultrasound for EUS guided FNA, staging and followed by a ERCP for biliary decompression. The risks of the procedures include bleeding, infection, perforation, pain, failed biliary cannulation and insufficient cellularity.
[2022-08-24] MEDS ORDERED: INDOMETHACIN 50 MG SUPP PR ONE ×2 (07:13→10:12)
[2022-08-24] MEDS ORDERED: CIPROFLOXACIN 400MG / 200ML D5W IV ONE (07:14)
[2022-08-24] MEDS ORDERED: LABETALOL HCL IV 5 MG/ML 20ML IV PRN (07:51)
[2022-08-24] MEDS ORDERED: fentaNYL citrate 100 MCG/2 ML VIAL IV PRN (07:51)
[2022-08-24] MEDS ORDERED: ATROPINE SULFATE 0.1 MG/ML 10ML SYR IV PRN (07:51)
[2022-08-24] MEDS ORDERED: FLUMAZENIL 0.1 MG/1 ML 10 ML VIAL IV PRN (07:51)
[2022-08-24] MEDS ORDERED: PROMETHAZINE HCL 12.5 MG in SODIUM CHLORIDE 0.9% 50 ML IV PRN (07:51)
[2022-08-24] MEDS ORDERED: NALOXONE HCL 0.4 MG/1 ML VIAL/CARP IV PRN (07:51)
[2022-08-24] MEDS ORDERED: ePHEDrine sulfate 50 MG/ML AMP IV PRN (07:51)
[2022-08-24] MEDS ORDERED: ONDANSETRON INJ 2 MG/ML 2 ML VIAL IV PRN (07:51)
--- NOTE | 2022-08-24 08:28 | Post Operative Brief Note ---
Immediate Post Op Note v1 Date of Surgery August 24, 2022 Pre & Post Diagnosis Operation Date: 08/24/22 07:15 Pre-Op Diagnosis: pancreatic tumor, abn lfts Post-Op Diagnosis: Pancreatic mass. I identified the patient and participated in the time-out.: Yes Procedure Operation Date: 08/24/22 07:15 Actual Procedures p Endoscopic Ultrasonography Upper - Mukesh Hussein DO p Endoscopic Retrograde Cholangiopancreato - Mukesh Hussein DO Surgeon Mukesh Hussein DO Pacs Specialist none Estimated Blood Loss 0 Findings Consistent with Post-Op Diagnosis
--- NOTE | 2022-08-24 08:31 | Communication Note ---
Date of Service: August 24, 2022 Patient underwent EUS and attempted ERCP today. The patient was found to have a 24 mm mass in the pancreatic head obstructing the bile duct and pancreatic duct. Fine-needle aspiration was obtained from the primary, unfortunately I was unable to cannulate the biliary tree due to obstruction from the mass. Recommendations Clear liquid diet today Referral to a tertiary center for repeat ERCP
--- NOTE | 2022-08-24 08:48 | Anesthesiology Progress Note ---
Date of Service August 24, 2022 Anesthesia Post Procedure Vital Signs Vital Signs: Temp Pulse Pulse Resp BP BP Pulse Ox 08/24/22 08:35 76 20 144/94 H 96 08/24/22 08:25 75 16 149/82 H 99 08/24/22 08:16 36.2 C L 77 15 138/77 100 08/24/22 06:03 36.8 C 56 L 16 133/75 96 08/23/22 22:23 37.1 C 60 17 118/67 97 08/23/22 19:55 08/23/22 16:33 36.5 C 64 18 134/82 99 O2 Del Method O2 Flow Rate 08/24/22 08:35 Room Air 08/24/22 08:25 Oxymask 4 08/24/22 08:16 Oxymask 14 08/24/22 06:03 Room Air 08/23/22 22:23 Room Air 08/23/22 19:55 Room Air 08/23/22 16:33 Room Air Transfer of Care Handoff Completed per policy Notes Mental Status: alert / awake / arousable Patient Amnestic to Procedure: Yes Nausea / Vomiting: adequately controlled Pain: adequately controlled Airway Patency, RR, SpO2: stable & adequate BP & HR: stable & adequate Hydration State: stable & adequate Anesthetic Complications: no major complications apparent
[2022-08-24] MEDS: lisinopril 10 MG TAB PO SCH (09:09)
--- NOTE | 2022-08-24 09:14 | History & Physical Report ---
Date of Service August 24, 2022 Assessment & Plan Admission and Anticipated Discharge Date Admission Date: August 22, 2022 History of Present Illness Chief Complaint: Abdominal pain Primary Care Provider: Charli Reagan MD The patient is referred for upper endoscopy, endoscopic ultrasound and possible ERCP to evaluate a history of abdominal discomfort and mild elevation of her liver associated enzymes. She reports having a cholecystectomy in 2013 and has developed intermittent right-sided discomfort over the past few weeks. Allergies Allergy/AdvReac Type Severity Reaction Status Date / Time lidocaine Allergy Severe NOVOCAINE,BROOKE-FACIAL Verified 08/22/22 20:19 SWELLING,RESP DISTRESS procaine Allergy Unknown FACIAL Verified 08/22/22 20:19 SWELLING sitagliptin Allergy Unknown liver Verified 08/22/22 20:19 problems strawberry Allergy Unknown Unknown Verified 08/22/22 20:19 ranitidine Allergy Hives Verified 08/22/22 20:20 Home Medications Medication Instructions Recorded Confirmed Type canagliflozin 300 mg tablet 300 mg PO QAM ##0 03/21/17 08/22/22 History (Invokana) cyanocobalamin (vitamin B-12) 1,000 mcg PO DAILY #0 tabs 03/21/17 08/22/22 History 1,000 mcg tablet lisinopril 10 mg tablet 10 mg PO DAILY #0 tabs 03/21/17 08/22/22 History metformin 1,000 mg tablet 1,000 mg PO BIDM #0 tabs 03/21/17 08/22/22 History tramadol 50 mg tablet 50 mg PO Q6H PRN Pain #0 tabs 03/21/17 08/22/22 History atorvastatin 40 mg tablet 40 mg PO DAILY 01/21/21 08/22/22 History acetaminophen 650 mg 1,300 mg PO DAILY 08/22/22 08/22/22 History tablet,extended release aspirin 81 mg chewable tablet 81 mg PO DAILY 08/22/22 08/22/22 History insulin glargine 100 unit/mL (3 30 unit subcut HS 08/22/22 08/22/22 History mL) subcutaneous pen (Lantus Solostar U-100 Insulin) levothyroxine 100 mcg tablet 100 mcg PO DAILYBB 08/22/22 08/22/22 History omeprazole 20 mg capsule,delayed 20 mg PO DAILYBB 08/22/22 08/22/22 History release potassium citrate 99 mg capsule 99 mg PO DAILY 08/22/22 08/22/22 History prednisone 5 mg tablet 5 mg PO DAILY 08/22/22 08/22/22 History Past Med/Surg History Medical History Diabetes HLD (hyperlipidemia) HTN (hypertension) Hypothyroid Surgical History Hx of colonoscopy Family History Other Prostate cancer Social History Smoking Status: Current every day smoker Tobacco Type: Cigarettes Do You Dip or Chew Tobacco: No; Tobacco Cessation Education Requested by Patient: No Hx Alcohol Use: No Hx Substance Use: No Preferred Language: Ethiopian Communication Ability: Effective Sky Diver Required: No Beliefs That Will Affect Care: None Current Living Situation: Spouse Other Information That Helps Us Care for You: No Feels Safe at Home: Yes Safety Concerns: Feels Safe At This Time Assistive Devices: None Physical Exam Eyes: PERRL, conjunctivae normal, anicteric sclerae ENMT: external ear and nose normal, oropharynx normal Respiratory: normal respiratory effort, lungs clear to auscultation Cardiovascular: RRR, no murmur, no edema Gastrointestinal (Abdomen): Inspection/Auscultation: abdomen normal to inspection; abdomen not distended Results & Data ([facility]) Vital Signs (Past 12 Hours) Vital Signs Temp Pulse Pulse Resp BP BP Pulse Ox 08/24/22 08:45 36.3 C L 69 16 137/75 97 08/24/22 08:35 76 20 144/94 H 96 08/24/22 08:25 75 16 149/82 H 99 08/24/22 08:16 36.2 C L 77 15 138/77 100 08/24/22 06:03 36.8 C 56 L 16 133/75 96 08/23/22 22:23 37.1 C 60 17 118/67 97 O2 Del Method O2 Flow Rate 08/24/22 08:45 Room Air 08/24/22 08:35 Room Air 08/24/22 08:25 Oxymask 4 08/24/22 08:16 Oxymask 14 08/24/22 06:03 Room Air 08/23/22 22:23 Room Air Laboratory Results Albumin 3.8 - 5.0 g/dL 4.7 AST 10 - 35 U/L 30 Alkaline Phosphatase 35 - 130 U/L 114 ALT 10 - 35 U/L 45High Bilirubin, Total <=1.2 mg/dL 0.8 Bilirubin, Direct 0.0 - 0.3 mg/dL <0.2 Protein 6.0 - 8.3 g/dL 7.5 Code Status & VTE Plan VTE Prophylaxis Plan VTE Prophylaxis will be ordered: Yes
[2022-08-24 09:27] LABS: Hemoglobin 12.7 g/dl (14.0-18.0); Mean Corpuscular Hgb Conc 33.4 g/dL (32.0-36.0); Mean Corpuscular Volume 95.7 fL (80.0-100.0); Mean Platelet Volume 11.3 fL (9.4-12.4); Platelet Count 260 K/uL (130-400); RDW Coefficient of Variation 17.2 % (11.5-14.5); Red Blood Count 3.97 M/uL (4.63-6.08)
--- NOTE | 2022-08-24 09:31 | GI REPORT ---
Patient Name: Srinivas Boone Procedure Date: 08/24/2022 7:44 AM Date of : 1950 Admit Type: Inpatient Age: 72 Gender: Male Attending MD: Mukesh Hussein DO, Procedure: ERCP Providers: Mukesh Hussein DO Referring MD: DENISE Basilio Indications: Jaundice, Elevated liver enzymes Medicines: General Anesthesia Complications: No immediate complications. Estimated blood loss: Minimal. Estimated Blood Loss: Estimated blood loss was minimal. Procedure: Pre-Anesthesia Assessment: - Prior to the procedure, a History and Physical was performed, and patient medications, allergies and sensitivities were reviewed. The patient's tolerance of previous anesthesia was reviewed. - The risks and benefits of the procedure and the sedation options and risks were discussed with the patient. All questions were answered and informed consent was obtained. - Patient identification and proposed procedure were verified prior to the procedure by the physician, the nurse and the glass mechanic. The procedure was verified in the procedure room. - Pre-procedure physical examination revealed no contraindications to sedation. - ASA Grade Assessment: IV - A patient with severe systemic disease that is a constant threat to life. - After reviewing the risks and benefits, the patient was deemed in satisfactory condition to undergo the procedure. - The anesthesia plan was to use general anesthesia. - Immediately prior to administration of medications, the patient was re-assessed for adequacy to receive sedatives. - The heart rate, respiratory rate, oxygen saturations, blood pressure, adequacy of pulmonary ventilation, and response to care were monitored throughout the procedure. - The physical status of the patient was re-assessed after the procedure. After obtaining informed consent, the scope was passed under direct vision. Throughout the procedure, the patient's blood pressure, pulse, and oxygen saturations were monitored continuously. The Duodenoscope was introduced through the mouth, and advanced to the duodenum without successful cannulation. The ERCP was accomplished without difficulty. The patient tolerated the procedure well. Findings: The cutting machine tender decorative film was normal. The esophagus was successfully intubated under direct vision without detailed examination of the pharynx, larynx, and associated structures, and upper GI tract. The upper GI tract was grossly normal. The major papilla was small. The bile duct could not be cannulated with the short-nosed traction sphincterotome and guidewire (several combinations tried to include a 0.35 in acrobat 2, 0.025 angled visiglide). A biliary pre-cut sphincterotomy was made with a needle knife using a freehand technique using ERBE electrocautery. There was no post-sphincterotomy bleeding. The bile duct could not be cannulated despite the pre-cut. The endoscope was withdrawn from the patient. Impression: - The major papilla appeared to be small. - A biliary sphincterotomy was performed. Recommendation: - Return patient to [facility] for ongoing care. - Refer to [facility] [place] for repeat attempt at ERCP. Mukesh Hussein D.O. Mukesh Hussein, DO 08/24/2022 9:30:51 AM This report has been signed electronically. Note Initiated On: 08/24/2022 7:44 AM Number of Addenda: 0 I attest to the content of the Intraoperative Record and orders documented therein, exceptions below {[id number]}
--- NOTE | 2022-08-24 10:18 | Discharge Summary ---
Date of Service August 24, 2022 Admission HPI Per Admitting Provider History obtained from patient, family, and records. Medical history significant for hypertension, hyperlipidemia, PVD, PMR on chronic steroid Rx, GERD, DM2 insulin requiring, hypothyroidism, chronic anemia (baseline hemoglobin of 13), ongoing tobacco abuse. 1 month history of generalized pruritus. Two weeks ago, patient noted weight loss and poor appetite. No abdominal pain, no fever, no chills. No bleeding. Outpatient blood work ordered by PCP during outpatient visit last month drawn 4 days ago. Abnormal labs noted. Hemoglobin noted to be 12, ALT 190, AST 309, alk phos 586, total bilirubin 9 Outpatient liver ultrasound requested by PCP few days ago. 1. The pancreatic duct is prominent measuring up to 3.7 mm. Further nonemergent evaluation is recommended to exclude pancreatic neoplasm. 2. 1.4 x 1.2 cm slightly hypoechoic lesion in the anterior aspect of the left lobe of the liver. Additional 1.6 x 2 cm lesion in the right lobe of the liver. Additional lesions are present but not measured. Further nonemergent evaluation with CT with liver protocol or MRI is recommended to exclude neoplastic process. Patient skin color noted to be yellow by this week. Patient directed to ER by PCP following conversation with . Admission Exam Per Admitting Provider GENERAL: Comfortable, pleasant, no respiratory distress SKIN: Jaundice, warm HEENT: Pale palpebral conjunctivae, no ptosis, icteric sclerae, dry buccal mucosa NECK : Supple, no tenderness CHEST : Decreased breath sounds, no tenderness HEART : RRR, no obvious murmurs ABDOMEN: Some distention, nontender EXTREMITIES : No LE swelling/tenderness, no other conspicuous deformities noted NEUROLOGIC : Coherent, no facial asymmetry, no other gross focality Principal Diagnosis Pancreatic mass Rectal pain Diarrhea Lung nodule Diabetes Discharge Exam General- No acute distress Head- atraumatic Eyes- PERRL, EOMI, ENT- oropharynx clear Neck- supple, no JVD Lungs- clear to auscultation Heart- regular rhythm; no murmur Abdomen- normal bowel sounds, soft, nontender Extremities- no calf tenderness Neuro- alert, oriented x 3; PERRL, EOMI; no facial palsy; no dysarthria Skin- warm & dry, +jaundice Discharge Data Allergies Allergy/AdvReac Type Severity Reaction Status Date / Time lidocaine Allergy Severe NOVOCAINE,BROOKE-FACIAL Verified 08/22/22 20:19 SWELLING,RESP DISTRESS procaine Allergy Unknown FACIAL Verified 08/22/22 20:19 SWELLING sitagliptin Allergy Unknown liver Verified 08/22/22 20:19 problems strawberry Allergy Unknown Unknown Verified 08/22/22 20:19 ranitidine Allergy Hives Verified 08/22/22 20:20 Consultations 08/22/22 18:45 ED Decision to Admit Stat 08/22/22 23:09 Consult Gastroenterology Routine Procedures Performed Operation Date: 08/24/22 07:15 Actual Procedures p Endoscopic Ultrasonography Upper - Mukesh Hussein DO p Endoscopic Retrograde Cholangiopancreato - Mukesh Hussein DO Ordered Studies 08/22/22 17:47 CT Abd and Pelvis [CT abd pelvis IV con only] Stat 08/24/22 FL fluoroscopy <1hr Routine 08/24/22 06:42 US upper EUS PACS images Routine Laboratory Results WBC 6.70 K/ul (4.8-10.8) 08/24/22 09:15 RBC 3.97 M/uL (4.63-6.08) L 08/24/22 09:15 Hgb 12.7 g/dl (14.0-18.0) L 08/24/22 09:15 Hct 38.0 % (40.1-51.0) L 08/24/22 09:15 MCV 95.7 fL (80.0-100.0) 08/24/22 09:15 MCH 32.0 pg (25.0-34.0) 08/24/22 09:15 MCHC 33.4 g/dL (32.0-36.0) 08/24/22 09:15 RDW Std Deviation 60.0 fL (36.4-46.3) H 08/24/22 09:15 RDW Coeff of Malick 17.2 % (11.5-14.5) H 08/24/22 09:15 Plt Count 260 K/uL (130-400) 08/24/22 09:15 MPV 11.3 fL (9.4-12.4) 08/24/22 09:15 Immature Gran % (Auto) 0.2 % 08/23/22 07:02 Neut % (Auto) 68.1 % 08/23/22 07:02 Lymph % (Auto) 16.9 % 08/23/22 07:02 [place] % (Auto) 11.0 % 08/23/22 07:02 Eos % (Auto) 2.8 % 08/23/22 07:02 Baso % (Auto) 1.0 % 08/23/22 07:02 Reticulocyte % (Auto) 2.5 % (0.5-2.0) H 08/23/22 07:02 Neut # (Auto) 4.07 K/uL (1.4-6.5) 08/23/22 07:02 Lymph # (Auto) 1.01 K/uL (1.2-3.4) L 08/23/22 07:02 [place] # (Auto) 0.66 K/uL (0.24-0.82) 08/23/22 07:02 Eos # (Auto) 0.17 K/uL (0-0.50) 08/23/22 07:02 Baso # (Auto) 0.06 K/uL (0-0.2) 08/23/22 07:02 Reticulocyte # 0.08 10^6/uL (0.02-0.10) 08/23/22 07:02 Immature Gran # (Auto) 0.01 K/uL (0.00-0.02) 08/23/22 07:02 PT 11.9 Seconds (9.0-12.0) 08/22/22 16:50 INR 1.1 (0.9-1.1) 08/22/22 16:50 APTT 27.1 Seconds (21.0-31.0) 08/22/22 16:50 PTT Ratio 1.0 08/22/22 16:50 Sodium 136 mmol/L (136-145) 08/24/22 09:15 Potassium 3.5 mmol/L (3.5-5.1) 08/24/22 09:15 Chloride 101 mmol/L (98-107) 08/24/22 09:15 Carbon Dioxide 28 mmol/L (21-32) 08/24/22 09:15 Anion Gap 7 (3-11) 08/24/22 09:15 BUN 6 mg/dl (6-23) 08/24/22 09:15 Creatinine 0.63 mg/dl (0.6-1.4) 08/24/22 09:15 Est Cr Clr Drug Dosing 90.9 ml/min 08/24/22 09:15 Est GFR ( Amer) 114.1 ml/min 08/24/22 09:15 Est GFR (Non-Af Amer) 98.5 ml/min 08/24/22 09:15 BUN/Creatinine Ratio 9.5 (10-20) L 08/24/22 09:15 Glucose 101 mg/dl (70-99(Fasting)) H 08/24/22 09:15 POC Glucose 114 mg/dl (70-99) H 08/24/22 08:22 Calcium 8.9 mg/dl (8.5-10.1) 08/24/22 09:15 Iron 97 mcg/dl (35-175) 08/23/22 07:02 Transferrin 214 mg/dl (200-360) 08/23/22 07:02 Ferritin 235.2 ng/ml (8-388) 08/23/22 07:02 Total Bilirubin 13.5 mg/dl (0.2-1.0) H 08/24/22 09:15 AST 181 U/L (13-39) H 08/24/22 09:15 ALT 129 U/L (7-52) H 08/24/22 09:15 Alkaline Phosphatase 483 U/L (34-104) H 08/24/22 09:15 Total Protein 7.4 gm/dl (6.0-8.3) 08/24/22 09:15 Albumin 3.7 gm/dl (3.4-5.0) 08/24/22 09:15 Globulin 3.7 gm/dl (2.5-4.0) 08/24/22 09:15 Albumin/Globulin Ratio 1.0 (0.9-2) 08/24/22 09:15 Carcinoembryonic Ag 51.8 ng/ml (0-2.5) H 08/23/22 07:02 CA 19-9 Antigen 93516 U/mL (<34) H 08/23/22 07:02 Vitamin B12 > 1500 pg/ml (180-914) H 08/23/22 07:02 Folate 14.46 ng/ml (>5.38) 08/23/22 07:02 Urine Color Dark Yellow 08/22/22 18:20 Urine Appearance Clear (Clear) 08/22/22 18:20 Urine pH 5.5 (4.5-7.5) 08/22/22 18:20 Ur Specific [place] > 1.045 (1.000-1.030) H 08/22/22 18:20 Urine Protein Negative (Negative) 08/22/22 18:20 Urine Glucose (UA) 3+ (Negative) H 08/22/22 18:20 Urine Ketones Negative (Negative) 08/22/22 18:20 Urine Blood Negative (Negative) 08/22/22 18:20 Urine Nitrite Negative (Negative) 08/22/22 18:20 Urine Bilirubin 3+ (Negative) H 08/22/22 18:20 Urine Urobilinogen Negative (Negative) 08/22/22 18:20 Ur Leukocyte Esterase Negative (Negative) 08/22/22 18:20 Stl C. cayetanensis PCR Not Detected (NotDetected) 08/23/22 Unknown Stool Rotavirus A PCR Not Detected (NotDetected) 08/23/22 Unknown Stl Adenov F 40/41 PCR Not Detected (NotDetected) 08/23/22 Unknown Stool Astrovirus (PCR) Not Detected (NotDetected) 08/23/22 Unknown Stool Campylobacter PCR Not Detected (NotDetected) 08/23/22 Unknown Stl C. diff Tox B Gene TNP 08/23/22 Unknown Stool Cryptosporidium PCR Not Detected (NotDetected) 08/23/22 Unknown Stl E.coli Shiga Tox PCR Not Detected (NotDetected) 08/23/22 Unknown Stl Enterotoxigenic E PCR Not Detected (NotDetected) 08/23/22 Unknown Stool EPEC (PCR) Not Detected (NotDetected) 08/23/22 Unknown Stool EAEC (PCR) Not Detected (NotDetected) 08/23/22 Unknown Stl E. histolytica PCR Not Detected (NotDetected) 08/23/22 Unknown Stool Giardia Lamblia PCR Not Detected (NotDetected) 08/23/22 Unknown Stool Salmonella PCR Not Detected (NotDetected) 08/23/22 Unknown Stool Sapovirus (PCR) Not Detected (NotDetected) 08/23/22 Unknown Stl P. shigelloides PCR Not Detected (NotDetected) 08/23/22 Unknown Stl Shigella/EIEC PCR Not Detected (NotDetected) 08/23/[address]enterocolitica PCR Not Detected (NotDetected) 08/23/22 Unknown Stool Vibrio (PCR) Not Detected (NotDetected) 08/23/22 Unknown Stl Vibrio cholerae PCR Not Detected (NotDetected) 08/23/22 Unknown Stl Norovirus GI/GII PCR Not Detected (NotDetected) 08/23/22 Unknown SARS-CoV-2, RNA, NAAT NEGATIVE (NEGATIVE) 08/22/22 18:00 Impressions Abdomen/Pelvis CT 08/22/22 17:47 CT OF THE ABDOMEN AND PELVIS WITH CONTRAST CLINICAL HISTORY: Abdominal pain. Elevated liver function tests. COMPARISON STUDY: None. TECHNIQUE: Following IV administration of 86 mL of Optiray, axial images of the abdomen and pelvis were obtained from the lung bases to the proximal femurs. Images were reviewed in the axial, sagittal, and coronal planes. IV contrast was administered without complication. Automated exposure control was utilized for the study. A dose lowering technique was utilized adhering to the principles of ALARA. CT DOSE: 290.53 mGy.cm FINDINGS: Numerous irregular nodules, the majority of which are cavitary, are noted within the lower lungs. These measure up to 1.5 cm. No pneumatosis, free air or portal venous gas is present. There are multiple ill-defined hypodense hepatic lesions that measure up to 1.7 cm. Moderate to marked biliary ductal dilatation is noted status post cholecystectomy. Common bile duct measures 1.8 cm in caliber. Abrupt caliber change of the distal common bile duct within the pancreatic head is noted. There is no pancreatic ductal dilatation. However, there is an ill-defined mass within the pancreatic head and uncinate process which measures approximately 2.9 x 1.8 cm. This extends along the medial wall of the duodenum. No lymphadenopathy is present. Spleen, adrenal glands and kidneys are unremarkable. Is no hydronephrosis. There is extensive plaque of the abdominal aorta. Wall thickening of the sigmoid colon and rectum is noted. There is no evidence for a bowel obstruction. There is no ascites. No suspicious osseous lesions are present. IMPRESSION: 1. Ill-defined pancreatic head and uncinate process mass which measures approximately 2.9 x 1.8 cm. This is highly suggestive of pancreatic adenocarcinoma which results in moderate to marked biliary ductal dilatation with numerous liver and pulmonary metastases, as described above. 2. Rectosigmoid wall thickening. This may be due to underdistention or represent a nonspecific proctocolitis. 3. No bowel obstruction. ACT 112: Positive. There are findings on this exam that require communication between the performing entity and the patient following Patient Test Result Information Act ([place] Act 112) guidelines. Electronically signed by: Del Crawford M.D. 08/22/2022 6:28 PM Hospital Course (1) Painless jaundice: CT abd/pelvis showed pancreatic head and uncinate process mass which measures approximately 2.9 x 1.8 cm. This is highly suggestive of pancreatic adenocarcinoma which results in moderate to marked biliary ductal dilatation with numerous liver and pulmonary metastases. Elevated LFT with AST 202 and ALT 144 AST 197, ALT 129 and alkaline phosphate 441 today Elevated CEA and CA19-9 pending Gastro on board Case discussed with GI that plan for EUS/ERCP tomorrow Currently on clear liquid diet Will make NPO after midnight . Rectal pain CT abd/pelvis showed rectosigmoid wall thickening. This may be due to underdistention or represent a nonspecific proctocolitis. Starting on Hydrocortisone CT 25mg BID Diarrhea Stool cx are negative Consider colonoscopy to eval for proctitis Lung nodule Low-dose CT chest on 05/2022 show bilateral cavitary lesion CT imaging discussed with Dr. Zhao pulmonology recommend to repeat the CAT scan since it has been more than 3 months Due to recent contrast, will get the CT chest done in next few days Diabetes Recent hemoglobin A1c of 7.3 on August 2022 Continue Lantus and insulin sliding scale Continue monitor BS Code status full code Disposition We will discharge once medically stable (2) Pancreatic mass: (3) Transaminitis: Total Time Total Time Spent Total Time Spent (In Minutes): 35 minutes Discharge Plan Discharge Items Patient Disposition: Against Medical Advice Reason For Visit: pancreatic tumor, abn lfts Activity: Resume your previous activity Non-emergency contact: Primary Care Provider and Tobacco Prizer Follow-up/Referrals: Charli Reagan MD [Primary Care Provider] - (Date & Time 08/30/2022 11:20 AM Provider Shruti Kapadia MD Department General Internal Medicine [facility] ) Diet Comment: Biopsy of the pancreas Pending Studies at Discharge: Yes Stand-Alone Forms: [employer], Smoking Cessation Medications and DC Order Prescriptions: Continued cyanocobalamin (vitamin B-12) 1,000 mcg Tablet 1,000 mcg PO DAILY Qty: 0 tramadol 50 mg Tablet 50 mg PO Q6H PRN (Reason: Pain) Qty: 0 metformin 1,000 mg Tablet 1,000 mg PO BIDM Qty: 0 lisinopril 10 mg Tablet 10 mg PO DAILY Qty: 0 Invokana 300 mg Tablet 300 mg PO QAM Qty: 0 omeprazole 20 mg capsule,delayed release(DR/EC) 20 mg PO DAILYBB insulin glargine [Lantus Solostar U-100 Insulin] 100 unit/mL (3 mL) insulin pen 30 unit SUBCUT HS levothyroxine 100 mcg tablet 100 mcg PO DAILYBB prednisone 5 mg tablet 5 mg PO DAILY acetaminophen 650 mg Tablet Extended Release 1,300 mg PO DAILY aspirin 81 mg Tablet,Chewable 81 mg PO DAILY Rx Instructions: take with food potassium citrate 99 mg Capsule 99 mg PO DAILY atorvastatin 40 mg tablet 40 mg PO DAILY Discharge Orders: Left Against Medical Advice (Routine); Ordered 08/24/22 Ordered By: Poly Moore Admission Data Admit Date/Time: 08/22/22 21:39 Attending Provider: Poly Moore Admit Provider: Baljinder Solano Primary Care Provider: Charli Reagan Other Providers: Baljinder Solano ; Yesi Espino ; Ernie Rice ; Deepika Pritchett ; Sadie Donnelly ; Magali Sultana ; Iwona Khan ; Elmer,Conor ; Tino Manley ; Mukesh Hussein ; Maggi Kwan ; Narendra Moeller ; Eri Goins ; Aleida Cabrera ; Dulce Crane ; Tamia Sevilla ; Ameena Oleary ; Lalit Gerardo ; Craig Velasco ; Rosio Garland ; Julian Krause Jr
[2022-08-24 10:22] LABS: Albumin Level 3.7 gm/dl (3.4-5.0); BUN Creatinine Ratio 9.5 (10-20); Bilirubin,Total 13.5 mg/dl (0.2-1.0); Calcium 8.9 mg/dl (8.5-10.1); Creatinine Clr Calc Pharmacy 90.9 ml/min; Est GFR (African American) 114.1 ml/min; Est GFR (Non-African American) 98.5 ml/min; Globulin 3.7 gm/dl (2.5-4.0); Potassium 3.5 mmol/L (3.5-5.1); Total Protein 7.4 gm/dl (6.0-8.3)
--- NOTE | 2022-08-24 14:20 | GI REPORT ---
Patient Name: Srinivas Boone Procedure Date: 08/24/2022 7:22 AM Date of : 1950 Admit Type: Inpatient Age: 72 Gender: Male Attending MD: Mukesh Hussein DO, Procedure: Upper EUS Providers: Mukesh Hussein DO Referring MD: DENISE Basilio Indications: Suspected solid pancreatic neoplasm Medicines: General Anesthesia Complications: No immediate complications. Estimated blood loss: Minimal. Estimated Blood Loss: Estimated blood loss was minimal. Procedure: Pre-Anesthesia Assessment: - Prior to the procedure, a History and Physical was performed, and patient medications, allergies and sensitivities were reviewed. The patient's tolerance of previous anesthesia was reviewed. - The risks and benefits of the procedure and the sedation options and risks were discussed with the patient. All questions were answered and informed consent was obtained. - Patient identification and proposed procedure were verified prior to the procedure by the physician, the nurse and the heel seat laster. The procedure was verified in the procedure room. - Pre-procedure physical examination revealed no contraindications to sedation. - ASA Grade Assessment: IV - A patient with severe systemic disease that is a constant threat to life. - After reviewing the risks and benefits, the patient was deemed in satisfactory condition to undergo the procedure. - The anesthesia plan was to use general anesthesia. - Immediately prior to administration of medications, the patient was re-assessed for adequacy to receive sedatives. - The physical status of the patient was re-assessed after the procedure. After obtaining informed consent, the endoscope was passed under direct vision. Throughout the procedure, the patient's blood pressure, pulse, and oxygen saturations were monitored continuously. The Endosonoscope was introduced through the mouth, and advanced to the second part of duodenum. The upper EUS was accomplished without difficulty. The patient tolerated the procedure well. Findings: ENDOSONOGRAPHIC FINDING: : There was no sign of significant endosonographic abnormality in the ampulla. There was dilation in the common bile duct which measured up to 14 mm. Intrahepatid ductal dilation An irregular mass was identified in the pancreatic head. The mass was hypoechoic. The mass measured 26 mm by 21 mm in maximal cross-sectional diameter. The endosonographic borders were poorly-defined. There was sonographic evidence suggesting invasion into the portal vein (manifested by abutment). An intact interface was seen between the mass and the superior mesenteric artery, celiac trunk and duodenum suggesting a lack of invasion. The remainder of the pancreas was examined. The endosonographic appearance of parenchyma and the upstream pancreatic duct indicated duct dilation and a maximum duct diameter of 5 mm. Fine needle aspiration for cytology was performed. Color Doppler imaging was utilized prior to needle puncture to confirm a lack of significant vascular structures within the needle path. Five passes were made with the 25 gauge needle using a transduodenal approach. A stylet was used. A football scout was present and performed a preliminary cytologic examination. Final cytology results are pending. Estimated blood loss was minimal. Impression: - There was no sign of significant pathology in the ampulla. - There was dilation in the common bile duct which measured up to 11 mm. - A mass was identified in the pancreatic head. This was staged T3 N0 Mx by endosonographic criteria. The staging applies if malignancy is confirmed. Fine needle aspiration performed. Recommendation: - Perform an ERCP today. - Await cytology results. Mukesh Hussein D.O. Mukesh Hussein, 08/24/2022 2:19:42 PM This report has been signed electronically. Note Initiated On: 08/24/2022 7:22 AM Number of Addenda: 0 I attest to the content of the Intraoperative Record and orders documented therein, exceptions below {[id number]}
[2022-08-24] MEDS ORDERED: LANTUS PER UNIT CHARGE SQ SCH (21:00)
== END 2022-08-24 11:34 | disposition left against medical advice (07) | DRG 436 ==
LOC: ED 15:37 → 3N 21:39